=== PATIENT | female | born 1950 | race Caucasian/White ===

== ENCOUNTER 2020-11-08 07:23 | Outpatient (REF) | payer MEDICARE, SELFPAY ==
[2020-11-08 08:03] LABS: MANUAL DIFF FLAG NO
[2020-11-08 08:23] LABS: Basophils Percent Auto 0.6 % (0-2); Eosinophils Absolute Auto 0.1 X10*3/uL (0.0-0.4); Hemoglobin 14.2 g/dl (12.0-16.0); Lymphocytes Absolute Auto 1.5 X10*3/uL (1.2-4.9); Lymphocytes Percent Auto 41.9 % (20-40); Mean Corpuscular Hemoglobin 30.8 pg (27.0-33.0); Mean Corpuscular Volume 93.3 fL (80-98); Mean Platelet Volume 11.4 fL (9.4-12.3); Monocytes Absolute Auto 0.4 X10*3/uL (0.1-1.2); Monocytes Percent Auto 11.6 % (2-11); Neutrophils Absolute Auto 1.5 X10*3/uL (2.0-8.3); Neutrophils Percent Auto 43.9 % (45-73); Platelet Count 198 X10*3/uL (160-400); Red Blood Count 4.61 X10*6/uL (4.20-5.50); Red Cell Distribution Width 13.4 % (11.0-16.0); White Blood Count 3.5 X10*3/uL (4.8-10.8)
[2020-11-08 08:39] LABS: Alanine Aminotransferase 25 U/L (0-31); Albumin Level 4.1 g/dL (3.5-5.0); Alkaline Phosphatase 93 U/L (39-117); Anion Gap 11 (12-20); Aspartate Amino Transferase 28 U/L (5-31); Bilirubin Total 0.8 mg/dL (0.0-1.0); Blood Urea Nitrogen 16 mg/dL (9-16); Calcium 9.9 mg/dL (8.4-10.2); Carbon Dioxide 29 mmol/L (22-29); Chloride 104 mmol/L (96-108); Cholesterol 231 mg/dL; Estimated Glomerular Filt Rate > 60; Glucose Fasting 98 mg/dL (60-99); HDL Cholesterol 85 mg/dL; LDL Cholesterol Calculated 133 mg/dl; Potassium 4.5 mmol/L (3.3-5.1); Sodium 139 mmol/L (135-145); Triglycerides 68 mg/dL
[2020-11-08 08:55] LABS: Free T4 (Free Thyroxine) 0.89 ng/dL (0.71-1.85); Thyroid Stimulating Hormone 2.35 uIU/mL (0.32-4.0)
[2020-11-08 10:47] LABS: Estimated Average Glucose 100 mg/dL; Hemoglobin A1C 120.5009 umol/L; Hemoglobin A1c % 5.1 %
== END 2020-11-08 07:24 | disposition home or self-care (01) ==
LOC: HO.LAB 07:23
PROVIDERS: PCP Internal Medicine; Visit Provider Internal Medicine
DX: R00.2 Palpitations (principal); E78.00 Pure hypercholesterolemia, unspecified; E55.9 Vitamin D deficiency, unspecified; R21 Rash and other nonspecific skin eruption; R53.83 Other fatigue
CPT/HCPCS: 36415; 80053; 80061; 82306; 83036; 84439; 84443; 85025

== ENCOUNTER 2020-12-26 08:25 | Outpatient (REF) | payer MEDICARE, SELFPAY ==
--- NOTE | ~2020-12-26 | MM_ITS ---
EXAMINATION: MM SCREENING DIGITAL BREAST TOMOSYNTHESIS, BILATERAL CLINICAL INFORMATION: Screening. Asymptomatic. The lifetime risk of breast cancer based on the Tyrer-Cuzick Model is 8.8%. COMPARISON: Mammography: March 01, 2019 and studies dating back to August 13, 2011 TECHNIQUE: Digital breast tomosynthesis is performed in both the craniocaudal and mediolateral oblique views along with computer-aided detection (CAD). Synthesized 2D images are generated from the tomosynthesis. FINDINGS: There are scattered areas of fibroglandular density (ACR BI-RADS breast composition Category b). There are no significant masses, abnormal calcifications, or other abnormalities. MM/MM tomosynthesis screening BI IMPRESSION: There are no significant changes from prior study. ASSESSMENT: BI-RADS 1: Negative RECOMMENDATION: Routine annual mammography screening. This patient's information was entered into a reminder system with a target due date for their next mammogram.
--- NOTE | ~2020-12-26 | MM_ITS ---
EXAMINATION: BONE DENSITOMETRY CLINICAL INDICATION: Menopause. COMPARISON: Previous BD dated 08/16/2012 and baseline BD dated 06/01/2008. TECHNIQUE: Using a [employer] DXA System (software version: 13.1) manufactured by [employer], dual-energy x-ray absorptiometry was performed of the lumbar spine and left hip. The images are of good technical quality. Summary results are attached. FINDINGS: AP SPINE L1-L4: Current: BMD 1.229 g/cm2, Z-score 2.1, T-score 0.4, normal, 5.8% decrease from previous, 8.7% decrease from baseline (<5% change is not significant). Prior: BMD 1.304 g/cm2. Baseline: BMD 1.346 g/cm2. LEFT FEMUR, NECK: Current: BMD 1.096 g/cm2, Z-score 2.1, T-score 0.4, normal. Prior: BMD 1.198 g/cm2. Baseline: BMD 1.236 g/cm2. LEFT FEMUR, TOTAL: Current: BMD 1.085 g/cm2, Z-score 2.1, T-score 0.6, normal, 5.7% decrease from previous, 11.3% decrease from baseline (<5% change is not significant). Prior: BMD 1.151 g/cm2. Baseline: BMD 1.223 g/cm2. IDENTIFIED RISK FACTORS: Menopause. HISTORY OF FRACTURE: None listed. MEDICATIONS: Calcium, vitamin D. MM/XR DEXA axial skeleton IMPRESSION: 1. DIAGNOSIS: Normal bone density based on the lowest T-score value of 0.4 in the lumbar spine and femur neck applying World Health Organization criteria. 2. 10-YEAR FRACTURE RISK PREDICTION, FRAX: According to the guidelines, FRAX calculation should only be performed on patients in the osteopenia bone density category. Therefore, FRAX was not performed on this patient. 3. Treatment Recommendations: NOF guidelines recommend consideration for treatment in postmenopausal women and men age 50 and older presenting with the following: -A hip or vertebral (clinical or morphometric) fracture. -T-score less than or equal to -2.5 at the femoral neck or spine after appropriate evaluation to exclude secondary causes. -Low bone mass at the hip or spine and a 10-year fracture probability by FRAX of greater than or equal to 3% for hip fracture or greater than or equal to 20% for major osteoporotic fracture based on the [place] adapted WHO algorithm. 4. Other Recommendations: All treatment decisions require clinical judgment and consideration of individual patient factors, including patient preferences, comorbidities, previous drug use, risk factors not captured in the FRAX model (e.g. frailty, falls, vitamin D deficiency, increased bone turnover, interval significant decline in bone density) and possible under or overestimation of fracture risk by FRAX. FUTURE SCAN RECOMMENDATION: People with diagnosed cases of osteoporosis or at high risk for fracture should have regular bone mineral density tests. For patients eligible for Medicare, routine testing is allowed once every 2 years. The testing frequency can be increased to one year for patients who have rapidly progressing disease, those who are receiving or discontinuing medical therapy to restore bone mass, or have additional risk factors.
== END 2020-12-26 08:26 | disposition home or self-care (01) ==
LOC: HO.MAMMO 08:25
PROVIDERS: Visit Provider Internal Medicine
DX: Z13.820 Encounter for screening for osteoporosis (principal); Z78.0 Asymptomatic menopausal state; Z12.31 Encounter for screening mammogram for malignant neoplasm of breast
CPT/HCPCS: 77063; 77067; 77080

== ENCOUNTER 2022-01-08 07:11 | Outpatient (REF) | payer MEDICARE, SELFPAY ==
[2022-01-08 07:29] LABS: MANUAL DIFF FLAG NO
[2022-01-08 07:52] LABS: Basophils Percent Auto 0.6 % (0-2); Eosinophils Absolute Auto 0.1 X10*3/uL (0.0-0.4); Eosinophils Percent Auto 2.2 % (0-4); Hematocrit 42.2 % (37.0-47.0); Hemoglobin 14.3 g/dl (12.0-16.0); Imm Gran Abs Auto 0.01 X10*3/uL (0.00-0.03); Imm Gran Pct Auto 0.3 % (0.0-0.4); Lymphocytes Absolute Auto 1.4 X10*3/uL (1.2-4.9); Lymphocytes Percent Auto 38.9 % (20-40); Mean Corpuscular HGB Conc 33.9 g/dl (31.0-35.0); Mean Corpuscular Hemoglobin 31.4 pg (27.0-33.0); Mean Corpuscular Volume 92.5 fL (80.0-98.0); Mean Platelet Volume 10.9 fL (9.4-12.3); Monocytes Absolute Auto 0.4 X10*3/uL (0.1-1.2); Monocytes Percent Auto 11.4 % (2-11); Neutrophils Absolute Auto 1.7 x10*3/uL (2.0-8.3); Neutrophils Percent Auto 46.6 % (45-73); Platelet Count 206 X10*3/uL (160-400); Red Blood Count 4.56 X10*6/uL (4.20-5.50); Red Cell Distribution Width 13.8 % (11.0-16.0); White Blood Count 3.6 X10*3/uL (4.8-10.8)
[2022-01-08 08:34] LABS: Alanine Aminotransferase 43 U/L (0-31); Albumin Level 4.2 g/dL (3.5-5.0); Alkaline Phosphatase 105 U/L (39-117); Anion Gap 11 (12-20); Aspartate Amino Transferase 33 U/L (5-31); Bilirubin Total 0.8 mg/dL (0.0-1.0); Blood Urea Nitrogen 14 mg/dL (9-16); Calcium 9.6 mg/dL (8.4-10.2); Carbon Dioxide 29 mmol/L (22-29); Chloride 103 mmol/L (96-108); Cholesterol 238 mg/dL; Estimated Glomerular Filt Rate > 60; Glucose Fasting 94 mg/dL (60-99); HDL Cholesterol 85 mg/dL; LDL Cholesterol Calculated 138 mg/dl; Potassium 4.5 mmol/L (3.3-5.1); Sodium 138 mmol/L (135-145); Total Protein 6.9 g/dL (6.5-8.0); Triglycerides 79 mg/dL
[2022-01-08 08:58] LABS: Insulin 7 uU/mL (2-29)
[2022-01-08 09:10] LABS: Vitamin B12 1399 pg/mL (200-900)
== END 2022-01-08 07:12 | disposition home or self-care (01) ==
LOC: HO.LAB 07:11
PROVIDERS: PCP Internal Medicine; Visit Provider Internal Medicine
DX: Z00.00 Encounter for general adult medical examination without abnormal findings (principal); E78.00 Pure hypercholesterolemia, unspecified; R53.83 Other fatigue; R00.2 Palpitations
CPT/HCPCS: 36415; 80053; 80061; 82607; 83525; 85025

== ENCOUNTER 2022-01-20 07:05 | Outpatient (REF) | payer MEDICARE, SELFPAY ==
[2022-01-20 08:24] LABS: Cholesterol 224 mg/dL; HDL Cholesterol 81 mg/dL; LDL Cholesterol Calculated 129 mg/dl; Triglycerides 73 mg/dL
== END 2022-01-20 07:06 | disposition home or self-care (01) ==
LOC: HO.LAB 07:05
PROVIDERS: PCP Internal Medicine; Visit Provider Internal Medicine
DX: E78.00 Pure hypercholesterolemia, unspecified (principal)
CPT/HCPCS: 36415; 80061

== ENCOUNTER 2022-04-24 06:45 | Outpatient (REF) | payer MEDICARE, SELFPAY ==
[2022-04-24 07:52] LABS: Cholesterol 191 mg/dL; HDL Cholesterol 70 mg/dL; LDL Cholesterol Calculated 105 mg/dl; Triglycerides 81 mg/dL
== END 2022-04-24 06:46 | disposition home or self-care (01) ==
LOC: HO.LAB 06:45
PROVIDERS: PCP Internal Medicine; Visit Provider Internal Medicine
DX: E78.00 Pure hypercholesterolemia, unspecified (principal)
CPT/HCPCS: 36415; 80061

== ENCOUNTER 2023-01-08 06:27 | Outpatient (REF) | payer MEDICARE, SELFPAY ==
[2023-01-08 06:36] LABS: MANUAL DIFF FLAG NO
[2023-01-08 07:29] LABS: Basophils Percent Auto 0.7 % (0-2); Eosinophils Absolute Auto 0.1 X10*3/uL (0.0-0.4); Eosinophils Percent Auto 2.9 % (0-4); Hematocrit 42.8 % (37.0-47.0); Hemoglobin 14.3 g/dl (12.0-16.0); Imm Gran Abs Auto 0.01 X10*3/uL (0.00-0.03); Imm Gran Pct Auto 0.2 % (0.0-0.4); Lymphocytes Absolute Auto 1.9 X10*3/uL (1.2-4.9); Lymphocytes Percent Auto 46.5 % (20-40); Mean Corpuscular HGB Conc 33.4 g/dl (31.0-35.0); Mean Corpuscular Hemoglobin 31.5 pg (27.0-33.0); Mean Corpuscular Volume 94.3 fL (80.0-98.0); Mean Platelet Volume 11.3 fL (9.4-12.3); Monocytes Absolute Auto 0.6 X10*3/uL (0.1-1.2); Monocytes Percent Auto 13.3 % (2-11); Neutrophils Absolute Auto 1.5 x10*3/uL (2.0-8.3); Neutrophils Percent Auto 36.4 % (45-73); Platelet Count 193 X10*3/uL (160-400); Red Blood Count 4.54 X10*6/uL (4.20-5.50); Red Cell Distribution Width 13.5 % (11.0-16.0); White Blood Count 4.2 X10*3/uL (4.8-10.8)
[2023-01-08 08:02] LABS: Alanine Aminotransferase 24 U/L (0-31); Alkaline Phosphatase 85 U/L (39-117); Anion Gap 9 (12-20); Aspartate Amino Transferase 27 U/L (5-31); Bilirubin Total 0.8 mg/dL (0.0-1.0); Blood Urea Nitrogen 14 mg/dL (9-16); Calcium 10.1 mg/dL (8.4-10.2); Carbon Dioxide 29 mmol/L (22-29); Chloride 105 mmol/L (96-108); Cholesterol 238 mg/dL; Estimated Glomerular Filt Rate > 60; Glucose Fasting 95 mg/dL (60-99); HDL Cholesterol 90 mg/dL; LDL Cholesterol Calculated 135 mg/dl; Potassium 4.2 mmol/L (3.3-5.1); Sodium 139 mmol/L (135-145); Total Protein 7.1 g/dL (6.5-8.0); Triglycerides 67 mg/dL
== END 2023-01-08 06:28 | disposition home or self-care (01) ==
LOC: HO.LAB 06:27
PROVIDERS: PCP Internal Medicine; Visit Provider Internal Medicine
DX: M16.0 Bilateral primary osteoarthritis of hip (principal); E78.00 Pure hypercholesterolemia, unspecified
CPT/HCPCS: 36415; 80053; 80061; 85025

== ENCOUNTER → 2023-01-12 07:54 | Outpatient (REF) | payer MEDICARE, SELFPAY ==
--- NOTE | 2023-01-12 07:57 | CA_ITS ---
Acquisition Time: 2023-01-12 07:57:48 Total Exercise Time: 00:08:01 Test Indications: SOB Medications: SEE H Protocol: NATASHA Max HR: 122 BPM 82% of Pred: 148 BPM Max BP: 158/078 mmHG Max Work Load: 10.1 METS PT EXERCISED ON STD NATASHA PROTOCOL FOR 8 MIN INTO STAGE 3. MAX HR 122-82%MAX. TEST STOPPED DUE TO SOB. NO C/O CP. 1-2MM ST DEP IN INF/LAT LEADS. NML BP RESPONSE.CLINICALLY AND ELEC POSITIVE. WILL ARRANGE FOR FURTHER CARDIOLOGY TESTING. Referred By: Jass Reza Overread By: PANFILO REZA MD
== END ==
LOC: HO.CARD 07:54
PROVIDERS: PCP Internal Medicine; Visit Provider Internal Medicine
DX: R06.02 Shortness of breath (principal); Z82.49 Family history of ischemic heart disease and other diseases of the circulatory system
CPT/HCPCS: 93017

== ENCOUNTER → 2023-01-13 14:22 | Outpatient (BNVA) | payer MEDICARE, SELFPAY | PROVIDERS: PCP Internal Medicine; Visit Provider Internal Medicine Cardiovascular Disease | DX: R06.09 Other forms of dyspnea (principal) | CPT/HCPCS: 93005; 99202 ==

== ENCOUNTER → 2023-02-10 07:50 | Outpatient (REF) | payer MEDICARE, SELFPAY ==
--- NOTE | 2023-02-10 07:52 | CA_ITS ---
Transthoracic Echocardiogram Patient (Last, First, Middle): Kim Miles, Gender: Female Date of : 1950 Age: 72 Procedure Date: 02/10/2023 Procedure Type: Transthoracic Echocardiogram Location: OP Height: 170.18 cm Weight: 64.41 kg BSA: 1.75 m2 Heart Rate: 58 bpm BP: 122 / 74 mmHg Property Utilization Manager: FELIX Referring MD: Mo Cedillo MD Kiln Burner: Mo Cedillo MD Symptoms: R06.09 - Other forms of dyspnea Study Quality: Adequate ECG Rhythm: Bradycardia Conclusions: - Normal study Findings Left Ventricle Normal left ventricular cavity size. There is normal left ventricular wall thickness. The left ventricular systolic function is hyperdynamic. The visually estimated ejection fraction is >70%. Diastolic function is normal for age. Right Ventricle Normal right ventricular cavity size and systolic function. Atria Both atria are normal in size. There is no evidence of interatrial shunt. Aortic Valve Normal aortic valve structure and function. There is no aortic valve stenosis. There is no aortic valve regurgitation. Mitral Valve Normal mitral valve structure and function. There is trace mitral valve regurgitation. There is no mitral valve stenosis. Pulmonic Valve The pulmonic valve is likely normal. There is trace pulmonic valve regurgitation. Tricuspid Valve Normal tricuspid valve structure. Normal right atrial pressure. There is no evidence of pulmonary hypertension. Great Vessels The pulmonary artery was not well visualized. Venous The inferior vena cava is normal in size and collapses greater than 50% with inspiration. Pericardium/Pleural There is no evidence of pericardial effusion. Prior Study Comparison No prior study available for comparison. Measurements 2D Linear Measurements IVSd: 0.90 0.6-0.9/0.6-1.0 cm LVIDd: 3.78 3.9-5.3/4.2-5.9 cm LVIDd Index: 2.16 2.4-3.2/2.2-3.1 cm/m2 LVIDs: 2.29 2.0-3.6 cm LVPWd: 0.77 0.7-1.1 cm LA Diam: 2.90 2.7-3.8/3.0-4.0 cm LAIDs Index: 1.66 1.5-2.3 cm/m2 LV Mass: 112.46 67-162/88-224 g LV Mass Index: 64.26 43-95/49-115 g/m2 LVOT Diam: 1.90 3.0+(-)1.3 cm 2D Systolic Function EF 4C: 75.70 >55% EF 2C: 77.60 >55% EF BiP: 76.10 >55% Mitral Valve MV Pk E: 1.09 MV PK A: 0.49 MV Decel Time: 183.00 E/A: 2.20 E'Lateral: 8.49 E'Medial: 7.94 E/E' Med: 13.70 E/E' Lat: 12.80 PHT: 54.00 MVA PHT: 4.07 Decel [place]: 5.97 Aortic Valve AoV Pk Jeffrey: 1.42 AoV Pk Grad: 8.00 JAKE: 2.64 LVOT LVOT Pk Jeffrey: 1.32 LVOT Mn Jeffrey: 0.91 LVOT VTI: 0.31 LVOT Pk Grad: 7.00 LVOT Mn Grad: 4.00 LVOT Diam: 1.90 LVOT Area: 2.84 Diastolic Function MV Pk E: 1.09 MV Pk A: 0.49 E/A: 2.20 E'Medial: 7.94 E/E' Med: 13.70 E' Laterial: 8.49 E/E' Lat: 12.80 Right Ventricle TAPSE (mm): 29.70 TVS' Jeffrey: 13.70 Tricuspid Valve TR Pk Jeffrey: 2.49 TR Pk Grad: 25.00 RA Press: 3.00 RVSP: 28.00 Great Vessels Aorta Sinus of Valsalva: 3.20 2.0-3.5 cm Ao Asc: 3.60 2.1-3.4 cm Pulmonary Veins Pulm Vein S/D 1.00 Pulmonary Valve PV Pk Jeffrey: 1.04 Peak PV Grad: 4.00 Updated in Other Vendor System with Status of Final Mo Cedillo MD electronically signed on 02/11/2023 11:52:59 AM with status of Final
== END ==
LOC: HO.CARD 07:50
PROVIDERS: PCP Internal Medicine; Visit Provider Internal Medicine Cardiovascular Disease
DX: R06.09 Other forms of dyspnea (principal)
CPT/HCPCS: 93306

== ENCOUNTER → 2023-02-10 07:52 | Outpatient (BNV) | payer MEDICARE, SELFPAY | PROVIDERS: PCP Internal Medicine; Visit Provider Internal Medicine Cardiovascular Disease | DX: R94.39 Abnormal result of other cardiovascular function study (principal) | CPT/HCPCS: 93306 ==

== ENCOUNTER 2023-02-11 09:06 | Outpatient (REF) | payer MEDICARE, SELFPAY ==
[2023-02-11 09:58] LABS: Anion Gap 13 (12-20); Blood Urea Nitrogen 14 mg/dL (9-16); Calcium 9.3 mg/dL (8.4-10.2); Carbon Dioxide 23 mmol/L (22-29); Chloride 103 mmol/L (96-108); Estimated Glomerular Filt Rate > 60; Glucose Random 87 mg/dL (60-115); Potassium 4.3 mmol/L (3.3-5.1); Sodium 135 mmol/L (135-145)
== END 2023-02-11 09:07 | disposition home or self-care (01) ==
LOC: HO.LAB 09:06
PROVIDERS: PCP Internal Medicine; Visit Provider Internal Medicine Cardiovascular Disease
DX: R06.09 Other forms of dyspnea (principal)
CPT/HCPCS: 36415; 80048

== ENCOUNTER 2023-03-08 09:22 | Outpatient (AMB) | payer MEDICARE, SELFPAY ==
[2023-03-08 09:25] VITALS: BP 120/72; PULSE 63
--- NOTE | 2023-03-08 09:25 | A.OFFVIS_ITS ---
Intake Vital Signs 03/08/23 09:25 Height 57 ft Weight 143 lb 4.807 oz BMI 0.2 BP 120/72 Blood Pressure Location Lt brachial Position Sitting Pulse 63 Pulse Source Pulse Oximeter Intake Visit Reasons: folow up after testing Intake Note: f/up after testing pt still felling s/b while and during physical activities Overlock Hemmer Required: No Allergies erythromycin base [Erythromycin Base] Allergy (Unknown, Verified 03/08/23 09:30) RASH CITRACE SPRAY Allergy (Unknown, Uncoded 04/04/20 16:26) WHEEZING Medication List - Last Reconciled 03/08/23 by Mindy Carlton, MARLYN-C aspirin (Adult Aspirin Regimen) 81 mg PO DAILY multivitamin (Daily Multi-Vitamin tablet) 1 tab PO DAILY HPI folow up after testing HPI Details Kim is a 72-year-old female with past medical history of remote history of secondhand smoke, family history heart disease who is being evaluated for shortness of breath with activity and recently underwent an echocardiogram and CTA of the coronary arteries. Today she reports that she continues to have a symptom of shortness of breath with activity. She denies any shortness of breath at rest, PND, orthopnea. She has done the same type of physical activity for years including walking her neighborhood and she notices her tolerance is decreasing. She develops the shortness of breath with walking and this has slowed her down. She tolerates normal ADLs without significant difficulty. She watches her grandchildren daily. She will get twinges in her chest and has for many years. More recently she feels the twinges have increased. No palpitations, dizziness, presyncope, syncope, falls. She describes getting mild lower leg edema at times. 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 [facility] Surgical History Hx of cataract Hx of tonsillitis Family History Father CAD (coronary artery disease) Mother CAD (coronary artery disease) Social History Alcohol intake: current Alcohol intake frequency: holidays/special occasions only Patient Tobacco Use Status: Never used Tobacco Review of Systems Const All systems reviewed & are unremarkable except as noted in HPI and below ENT Reports dizziness Card Denies chest pain, Denies chest pain at rest, Denies chest pain with activity, Denies rapid heart rate, Denies pedal edema, Denies edema, Denies leg edema, Denies lightheadedness, Denies palpitations, Denies dyspnea, Reports dyspnea on exertion and Denies orthopnea Resp Denies cough, Denies dyspnea and Reports dyspnea on exertion GI Denies hematochezia and Denies change in stool character Musc Denies abnormal gait, Reports limited range of motion, Reports muscle cramps, Denies muscle weakness, Denies numbness, Denies radiating pain into limb, Denies stiffness and Denies tingling Neuro Denies abnormal gait, Reports dizziness, Denies numbness and Denies tingling Endo Denies palpitations Physical Exam Vital Signs: Last Vital Signs Pulse 63 03/08/23 09:25 BP 120/72 03/08/23 09:25 BMI result Body Mass Index 0.2 Const General: cooperative, healthy appearing, comfortable and no acute distress Orientation/consciousness: patient oriented x3 Neck Neck: Yes normal visual inspection and Yes no JVD Resp Effort & Inspection: normal respiratory effort Auscultation: clear to auscultation bilaterally, no crackles, no rales, no rhonchi and no wheezes Cardio Jugular venous distension: no JVD Rate: regular rate Rhythm: regular rhythm Heart sounds: S1 normal heart sound present, S2 normal heart sound present, no gallops, no murmurs and no rubs Neuro General: patient oriented x3 Extrem General: Yes normal to inspection Psych Appearance: grossly normal Mental Status: mental status grossly normal Speech and movement: Normal speech and movement present Assessment & Plan Assessment & Plan (1) Exertional dyspnea: Code(s): R06.09 - Other forms of dyspnea Plan: Reports of increasing shortness of breath with physical activity such as walking. She has maintained her same physical activity over many years but notices this symptom is increasing with time. No chest discomfort at rest or with activity. No PND, orthopnea or edema. No pulmonary history with the exception of secondhand smoke exposure throughout her childhood to age 18. No cardiac history but does have family history of CAD including parents. EKG done last visit showing sinus Servando with incomplete right bundle branch block, rate 53. Exercise stress test done 01/12/2023 with good exercise capacity, 10 Mets workload, shortness of breath present, EKG changes suggesting ischemia. An echocardiogram was done on 02/10/2023 showing normal study, EF greater than 70%. A CTA of the coronary arteries was done on 02/17/2023 showing no CAD. Today she reports ongoing symptoms of shortness of breath with activity. Reviewed all test results with her. Offered reassurance that no cardiac findings for her symptom have been identified. Will order a pulmonary function test for further evaluation. Inform she may stop daily aspirin as it is not needed for cardiac reasons. Ongoing cardiac risk factor modification including good cholesterol control, weight control, ongoing physical activity. She expresses much concern about her symptom of shortness of breath. Cardiology follow-up 3 months to go over pulmonary function test and re-evaluate symptoms. (2) Hyperlipidemia: Code(s): E78.5 - Hyperlipidemia, unspecified Plan: Labs done on 01/08/2023 shows total cholesterol 238, LDL 135, HDL 90. She has family history of coronary artery disease. CTA results as above. She is requesting low-dose cholesterol agent to help lower her total cholesterol. She states the benefit was discussed with her last visit. Will start atorvastatin 10 mg daily. Fasting lipid profile in 2-3 months. Orders: Orders PFT pulmonary function test Today R06.09 - Other forms of dyspnea Lipid Panel 2 Months E78.5 - Hyperlipidemia, unspecified Medications: New atorvastatin 10 mg PO BEDTIME 30 tabs 3RF Coding Level of Care Code Est Pt Level 3 (44486) Diagnoses Exertional dyspnea R06.09 Hyperlipidemia E78.5 Time Spent (min) 24 Comment Chart review, documentation, interview, assessment
== END 2023-03-08 10:14 | disposition home or self-care (01) ==
PROVIDERS: PCP Internal Medicine; Referring Provider Internal Medicine; Visit Provider Nurse Practitioner Family
DX: R06.09 Other forms of dyspnea (principal); E78.5 Hyperlipidemia, unspecified
CPT/HCPCS: 99213

== ENCOUNTER → 2023-03-08 09:22 | Outpatient (BNVA) | payer MEDICARE, SELFPAY | PROVIDERS: PCP Internal Medicine; Referring Provider Internal Medicine; Visit Provider Nurse Practitioner Family | DX: R06.09 Other forms of dyspnea (principal); E78.5 Hyperlipidemia, unspecified; Z82.49 Family history of ischemic heart disease and other diseases of the circulatory system | CPT/HCPCS: 99212 ==

== ENCOUNTER 2023-03-16 08:14 | Outpatient (REF) | payer MEDICARE, SELFPAY ==
--- NOTE | 2023-03-16 09:12 | PFT_ITS ---
FLOWS: 1. FEV1 101% of predicted at 2.52 L. 2. FVC 91% of predicted at 3.00 L. 3. FEV1 to FVC ratio of 0.84. 4. No bronchodilator response. LUNG VOLUMES: 1. Total lung capacity 90% of predicted at 4.95 L. 2. Residual volume 82% of predicted at 1.97 L. 3. Slow vital capacity 96% of predicted at 2.99 L. 4. Expiratory reserve volume 62% of predicted at 0.48 L. 5. Diffusion capacity is mildly decreased. IMPRESSION: No obstructive or restrictive ventilatory defect. No bronchodilator response. Decreased diffusion capacity suggests emphysema. Barber Morton MD AP/MODL / [id number]
== END 2023-03-16 08:15 | disposition home or self-care (01) ==
LOC: HO.RESP 08:14
PROVIDERS: PCP Internal Medicine; Visit Provider Nurse Practitioner Family
DX: R06.89 Other abnormalities of breathing (principal)
CPT/HCPCS: 94010; 94727; 94729

== ENCOUNTER → 2023-03-16 09:12 | Outpatient (BNV) | payer MEDICARE, SELFPAY | PROVIDERS: PCP Internal Medicine; Visit Provider Internal Medicine Pulmonary Disease | DX: R06.09 Other forms of dyspnea (principal) | CPT/HCPCS: 94060 ==

== ENCOUNTER 2023-05-26 10:19 | Outpatient (AMB) | payer MEDICARE, SELFPAY ==
--- NOTE | 2023-05-26 10:24 | A.OFFVIS_ITS ---
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 The patient is a 73 year woman her is a healthy who apparently has been complaining of worsening dyspnea on exertion for the last few years. Is concerned that is progressively getting worse and she would like to avoid that if possible. The patient did have a workup including a PFT which was completely unremarkable except for slight decrease in the diffusing capacity. The patient also had a cardiac workup which included an echocardiogram demonstrating a dynamic left ventricle in addition to that underwent a stress test that was abnormal as she developed worsening shortness of breath and ST depressions in the EKG. The patient there fore underwent a CT of the coronary arteries which apparently was unremarkable. Therefore she was referred to Pulmonary. The patient denies any significant coughing. We did go for brief 6 minutes walk test actually going up a flight of stairs in the patient did become uncomfortable with dyspnea with dyspnea score of 7/10. Her oxygen was 98% and heart rate increased to about 115. Once the heart rate improved to her baseline of 70s her symptoms improved as well. Therefore, I do believe that is still a cardiovascular component and thereforewill request blood work including a D-dimer to assess for pulmonary emboli. In addition to that she will benefit from a cardiopulmonary exercise tolerance test to assess further the reasons for her dyspnea. [facility] Medical History (Updated 05/27/23 @ 09:22 by Jose Jacobs MD) Tachycardia Surgical History Hx of tonsillitis Hx of cataract Family History Father CAD (coronary artery disease) Mother CAD (coronary artery disease) Social History Alcohol intake: current Alcohol intake frequency: holidays/special occasions only Patient Tobacco Use Status: Never used Tobacco Review of Systems Const Denies fever(s) Eyes Denies change in vision ENT Denies throat swelling Card Denies chest pain, Reports palpitations and Reports dyspnea on exertion Resp Denies cough, Reports dyspnea on exertion and Denies wheezing GI Denies abdominal pain Musc Reports no additional complaints Skin/Breast Denies rash Neuro Reports no additional complaints Endo Reports palpitations Aller/Immun Denies throat swelling and Denies wheezing Physical Exam Vital Signs: Last Vital Signs Pulse 56 05/26/23 10:25 BP 128/70 05/26/23 10:25 Pulse Ox 98 05/26/23 10:25 Oxygen Delivery Method Room Air 05/26/23 10:25 BMI result Body Mass Index 22.2 Const General: comfortable HEENT Head: Yes normocephalic Neck Neck: Yes supple Chest Chest palpation & inspection: normal inspection of the chest Resp Effort & Inspection: normal respiratory effort and tachypneic Auscultation: clear to auscultation bilaterally Cardio Rate: tachycardic Rhythm: regular rhythm Heart sounds: S1 normal heart sound present and S2 normal heart sound present GI Palpation (GI): Soft to palpation Skin General skin exam: no rashes or lesions noted Extrem General: Yes no clubbing, cyanosis or edema Assessment & Plan Assessment & Plan (1) Abnormal pulmonary function test: Comment: isolated diffusion impairment, mild Code(s): R94.2 - Abnormal results of pulmonary function studies (2) Exertional dyspnea: Comment: multifactorial. Although, I suspect a cardiovascular or pulmonary vascular component Code(s): R06.09 - Other forms of dyspnea (3) Tachycardia: Code(s): R00.0 - Tachycardia, unspecified Plan Bloodwork No need for inhaler therapy CPET at [facility] [place] Orders: Orders Basic Metabolic Panel Today R06.09 - Other forms of dyspnea D Dimer High Sensitivity Today R06.09 - Other forms of dyspnea Troponin-I High Sensitivity Today R06.09 - Other forms of dyspnea Complete Blood Count Auto Diff Today R06.09 - Other forms of dyspnea Erythrocyte Sedimentation Rate Today R06.09 - Other forms of dyspnea B Type Natriuretic Peptide Today R06.09 - Other forms of dyspnea Coding Level of Care Code New Pt Level 4 (58594) Diagnoses Abnormal pulmonary function test R94.2 Exertional dyspnea R06.09 Tachycardia R00.0 Time Spent (min) 40
[2023-05-26 10:25] VITALS: BP 128/70; PULSE 56; O2SAT 98; BMI 22.2
== END 2023-05-26 11:03 | disposition home or self-care (01) ==
PROVIDERS: PCP Internal Medicine; Referring Provider Nurse Practitioner Family; Visit Provider Hospitalist
DX: R94.2 Abnormal results of pulmonary function studies (principal); R06.09 Other forms of dyspnea; R00.0 Tachycardia, unspecified
CPT/HCPCS: 99204

== ENCOUNTER → 2023-05-26 10:19 | Outpatient (BNVA) | payer MEDICARE, SELFPAY | PROVIDERS: PCP Internal Medicine; Referring Provider Nurse Practitioner Family; Visit Provider Hospitalist | DX: R94.2 Abnormal results of pulmonary function studies (principal); R06.09 Other forms of dyspnea; R00.0 Tachycardia, unspecified | CPT/HCPCS: 99202 ==

== ENCOUNTER 2023-05-27 06:09 | Outpatient (REF) | payer MEDICARE, SELFPAY ==
[2023-05-27 06:23] LABS: MANUAL DIFF FLAG NO
[2023-05-27 07:20] LABS: Basophils Percent Auto 0.6 % (0-2); Eosinophils Absolute Auto 0.1 X10*3/uL (0.0-0.4); Hematocrit 44.3 % (37.0-47.0); Hemoglobin 14.8 g/dl (12.0-16.0); Imm Gran Abs Auto 0.01 X10*3/uL (0.00-0.03); Imm Gran Pct Auto 0.3 % (0.0-0.4); Lymphocytes Absolute Auto 1.5 X10*3/uL (1.2-4.9); Lymphocytes Percent Auto 43.5 % (20-40); Mean Corpuscular HGB Conc 33.4 g/dl (31.0-35.0); Mean Corpuscular Hemoglobin 30.8 pg (27.0-33.0); Mean Corpuscular Volume 92.3 fL (80.0-98.0); Mean Platelet Volume 10.7 fL (9.4-12.3); Monocytes Absolute Auto 0.4 X10*3/uL (0.1-1.2); Monocytes Percent Auto 11.3 % (2-11); Neutrophils Absolute Auto 1.4 x10*3/uL (2.0-8.3); Neutrophils Percent Auto 41.3 % (45-73); Platelet Count 208 X10*3/uL (160-400); Red Cell Distribution Width 13.2 % (11.0-16.0); White Blood Count 3.4 X10*3/uL (4.8-10.8)
[2023-05-27 07:27] LABS: D Dimer High Sensitivity < 150 NG/ML
[2023-05-27 07:40] LABS: Anion Gap 12 (12-20); Blood Urea Nitrogen 12 mg/dL (9-16); Calcium 9.8 mg/dL (8.4-10.2); Carbon Dioxide 27 mmol/L (22-29); Chloride 105 mmol/L (96-108); Cholesterol 192 mg/dL (<200); Estimated Glomerular Filt Rate > 60; Glucose Random 97 mg/dL (60-115); HDL Cholesterol 85 mg/dL (>40); LDL Cholesterol Calculated 93 mg/dL (<100); Potassium 3.9 mmol/L (3.3-5.1); Sodium 140 mmol/L (135-145); Triglycerides 70 mg/dL (<150)
[2023-05-27 07:46] LABS: B Type Natriuretic Peptide 52 pg/mL (<100)
[2023-05-27 07:49] LABS: Troponin-I High Sensitivity < 2.7 ng/L (<3.5-17.0)
[2023-05-27 07:57] LABS: Erythrocyte Sedimentation Rate 7 MM/HR (0-20)
== END 2023-05-27 06:10 | disposition home or self-care (01) ==
LOC: HO.LAB 06:09
PROVIDERS: Absent Provider Hospitalist; PCP Internal Medicine; Visit Provider Nurse Practitioner Family
DX: R06.09 Other forms of dyspnea (principal); E78.5 Hyperlipidemia, unspecified
CPT/HCPCS: 36415; 80048; 80061; 83880; 84484; 85025; 85379; 85652

== ENCOUNTER 2023-08-11 09:35 | Outpatient (AMB) | payer MEDICARE, SELFPAY ==
--- NOTE | 2023-08-11 09:37 | MHC.OFFVIS ---
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 Is concerned that is progressively getting worse and she would like to avoid that if possible. The patient did have a workup including a PFT which was completely unremarkable except for slight decrease in the diffusing capacity. The patient also had a cardiac workup which included an echocardiogram demonstrating a dynamic left ventricle in addition to that underwent a stress test that was abnormal as she developed worsening shortness of breath and ST depressions in the EKG. The patient therefore underwent a CT of the coronary arteries which apparently was unremarkable. Therefore she was referred to Pulmonary. The patient denies any significant coughing. We did go for brief 6 minutes walk test actually going up a flight of stairs in the patient did become uncomfortable with dyspnea with dyspnea score of 7/10. Her oxygen was 98% and heart rate increased to about 115. Once the heart rate improved to her baseline of 70s her symptoms improved as well. Therefore, I do believe that is still a cardiovascular component and thereforewill request blood work including a D-dimer to assess for pulmonary emboli. In addition to that she will benefit from a cardiopulmonary exercise tolerance test to assess further the reasons for her dyspnea. 08/11/2023 the patient is here for a pulmonary follow-up visit. Overall the patient has been doing well. She has noticed that her dyspnea symptoms did get worse after Thanksgiving she had a more sodium intake and she was feeling bloated and swollen. In addition to that she feels like her breathing is worse when she leans forward against something restricting her lung capacity as well. We did review her pulmonary function studies demonstrating a mild diffusion impairment. She also underwent a cardiopulmonary exercise tolerance test to better address her underlying dyspnea symptoms. She did have a lower than normal aerobic capacity in addition to that her breathing reserve was significantly decreased and her oxygen pulse was plateaued. Therefore, appears to be a component of a respiratory limitation as well as a potential component of pulmonary vascular disease. Therefore, we talked about the importance of pulmonary rehabilitation to improve her airway capacity. I do not believe inhalers will be helpful at this time. The patient may have a cardiac component as well but is reassuring that her cardiac workup was good. My recommendation for the patient's start pulmonary rehabilitation and we can repeat her PFTs in 8-12 months to see if there is any evidence of any changes. [facility] Medical History (Updated 08/11/23 @ 18:05 by Jose Jacobs MD) Tachycardia Surgical History Hx of tonsillitis Hx of cataract Family History Father CAD (coronary artery disease) Mother CAD (coronary artery disease) Social History Alcohol intake: current Alcohol intake frequency: holidays/special occasions only Patient Tobacco Use Status: Never used Tobacco Review of Systems Const Denies fever(s) Eyes Denies change in vision ENT Denies throat swelling Card Denies chest pain, Reports palpitations and Reports dyspnea on exertion Resp Denies cough, Reports dyspnea on exertion and Denies wheezing GI Denies abdominal pain Musc Reports no additional complaints Skin/Breast Denies rash Neuro Reports no additional complaints Endo Reports palpitations Aller/Immun Denies throat swelling and Denies wheezing Physical Exam Vital Signs: Last Vital Signs Pulse 63 08/11/23 09:39 Pulse Ox 100 08/11/23 09:39 Oxygen Delivery Method Room Air 08/11/23 09:39 BMI result Body Mass Index 22.1 Const General: comfortable HEENT Head: Yes normocephalic Neck Neck: Yes supple Chest Chest palpation & inspection: normal inspection of the chest Resp Effort & Inspection: normal respiratory effort Auscultation: clear to auscultation bilaterally Cardio Rate: tachycardic Rhythm: regular rhythm Heart sounds: S1 normal heart sound present and S2 normal heart sound present GI Palpation (GI): Soft to palpation Skin General skin exam: no rashes or lesions noted Extrem General: Yes no clubbing, cyanosis or edema Assessment & Plan Assessment & Plan (1) Abnormal pulmonary function test: Comment: isolated diffusion impairment, mild Code(s): R94.2 - Abnormal results of pulmonary function studies (2) Exertional dyspnea: Comment: multifactorial Code(s): R06.09 - Other forms of dyspnea (3) Tachycardia: Code(s): R00.0 - Tachycardia, unspecified Plan CPET demonstrates that the patient primarily has a low aerobic capacity primarily due to a respiratory limitation, but also appears to have a cardiovascular limititation. I suspect a component of pulmonary vascular disease. Clinically, the patient is feeling better at this time. REC: On line pulmonary rehab to improve aerobic capacity consider [place] as needed prior to exercise Should consider repeating PFTs in 8-12 months from now. The patient will call. Orders: Orders PFT pulmonary function test 10 Months R06.09 - Other forms of dyspnea Coding Level of Care Code Tele Est Pt Level 4 (90533) Diagnoses Abnormal pulmonary function test R94.2 Exertional dyspnea R06.09 Tachycardia R00.0 Time Spent (min) 18
[2023-08-11 09:39] VITALS: PULSE 63; O2SAT 100; BMI 22.1
== END 2023-08-11 10:23 | disposition home or self-care (01) ==
PROVIDERS: PCP Internal Medicine; Visit Provider Hospitalist
DX: R06.09 Other forms of dyspnea (principal); R00.0 Tachycardia, unspecified; R94.2 Abnormal results of pulmonary function studies
CPT/HCPCS: 99214

== ENCOUNTER → 2023-08-11 09:35 | Outpatient (BNVA) | payer MEDICARE, SELFPAY | PROVIDERS: PCP Internal Medicine; Visit Provider Hospitalist | DX: R06.09 Other forms of dyspnea (principal); R94.2 Abnormal results of pulmonary function studies; R00.0 Tachycardia, unspecified | CPT/HCPCS: 99212 ==

== ENCOUNTER 2023-11-08 10:15 | Day surgery (SDC) | payer MEDICARE, SELFPAY ==
--- NOTE | 2023-10-18 19:59 | HP_ITS ---
DATE OF SERVICE: 11/08/2023 HISTORY OF PRESENT ILLNESS: The patient is a 73-year-old female seen in the office today for preoperative evaluation prior to cataract surgery with Dr. Hawthorne scheduled for 11/08/2023. The patient feels well. She has been seen by Pulmonary. ALLERGIES: SHE LISTS AN ALLERGY TO ERYTHROMYCIN. MEDICATIONS: Atorvastatin 10 mg and aspirin 81 mg. PAST MEDICAL HISTORY: Significant for palpitations, fatigue, arthritis of the hips, hay fever, elevated cholesterol, borderline pulmonary hypertension. FAMILY HISTORY: Mother in her 70s. Father in his 70s. Two sisters, who have diabetes. SOCIAL HISTORY: She is , retired, has 2 children. 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 REVIEW OF SYSTEMS: No fevers, chills, or sweats. No weight change. No headaches or dizziness. No palpitations or chest pain. No peripheral edema. No current complaints of coughing, wheezing, or shortness of breath. No abdominal pain or heartburn. No dysuria. No complaints of arthritis. Sleep and appetite are normal. She does have seasonal allergies. No skin complaints. PHYSICAL EXAMINATION: GENERAL: She is awake and alert, in no distress. VITAL SIGNS: Temperature 98.2, pulse 60, respirations 12, blood pressure 108/62, oxygen saturation on room air is 99%. Weight is 140. Height is 5 feet 8 inches. HEENT: Clear. NECK: Supple. No nodes, bruits, or masses. HEART: Sounds S1 and S2. Regular rate. LUNGS: Clear. ABDOMEN: Soft and nontender with positive bowel sounds. EXTREMITIES: No clubbing, cyanosis, or edema. 1+ pulses. NEUROLOGICAL: Nonfocal. Cranial nerves II through XII are intact. ASSESSMENT AND PLAN: She is medically stable for cataract surgery. No contraindications. Low risk. I will be available if there are any medical issues. MD EDITA Gomez/MODL / [phone]
[2023-11-04 07:42] VITALS: BMI 22.1
[2023-11-08 13:17] VITALS: BP 123/63; PULSE 55; RESP 15; TEMP 36.3; O2SAT 98
[2023-11-08] MEDS: Tetracaine HCl/PF 0.5% Oph Sol 4 ML DROPS 1 DROP EYE-LEFT (13:29)
[2023-11-08] MEDS: Tropicamide 1 % Ophth Sol 3 ML BTL 1 DROP EYE-LEFT ×3 (13:32→13:42)
[2023-11-08] MEDS: Ketorolac Tromethamine 0.5% Op 5 ML DROPS 1 DROP EYE-LEFT ×3 (13:35→13:43)
[2023-11-08] MEDS: Phenylephrine HCL 2.5% Oph SoL 2 ML BOTTLE 1 DROP EYE-LEFT ×3 (13:36→13:44)
--- NOTE | 2023-11-08 13:51 | P.CONAN_ITS ---
HPI - Anesthesia Eval Consult details Narrative: 73 yo F presenting for Left Cataract Extraction IOL Insertion. Has dyspnea with exertion. Mild diffusion impairment with PFTs. 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 PMFSH Active Problems Active Problems: All Active Problems Abnormal pulmonary function test (Acute) Hyperlipidemia (Acute) Exertional dyspnea (Acute) Tachycardia (Acute) Past Medical History Medical History Pulmonary hypertension Elevated cholesterol Hayfever Arthritis Fatigue Palpitations Tachycardia Family History Family History Father CAD (coronary artery disease) Mother CAD (coronary artery disease) Family history of problems with anesthesia: No Surgical History Surgical History Hx of tonsillitis Hx of cataract History of Problems with Anesthesia: No Social History Social History Alcohol intake: current Alcohol intake frequency: holidays/special occasions only Patient Tobacco Use Status: Never used Tobacco Advance Directives: No Advance Directives Information Provided: Yes Advance Directives on File: No Meds Allergies Allergy/AdvReac Type Severity Reaction Status Date / Time erythromycin base Allergy Unknown RASH Verified 11/08/23 13:16 [Erythromycin Base] CITRACE SPRAY Allergy Unknown WHEEZING Uncoded 08/11/23 09:40 Active Medications: Current Medications Povidone Iodine (Povidone Iodine 5 % Ophth Soln 30 Ml Bottle) 1 appl EYE-LEFT PREOP PRN PRN Reason: Pre-Op Surgical Implant Prophy Home Medications ?Medication ?Instructions ?Recorded ?Confirmed ?Last Taken ?Type aspirin 81 mg tablet,delayed 81 mg PO DAILY 01/13/23 11/04/23 11/08/23 06:00 History release (Adult Aspirin Regimen) multivitamin (Daily Multi-Vitamin 1 tab PO DAILY 01/13/23 03/08/23 11/08/23 06:00 History tablet) Exam Exam Date and Time: November 08, 2023 1350 Height,Weight and Vital Signs: Height 5 ft 7 in Weight 63.957 kg Last Vital Signs Temp 97.3 F 11/08/23 13:17 Pulse 55 11/08/23 13:17 Resp 15 04/22/24 13:17 BP 123/63 11/08/23 13:17 Pulse Ox 98 11/08/23 13:17 O2 Del Method Room Air 11/08/23 13:17 Airway Mallampati Class: I TM Dist: >3cm Neck ROM: Full Loose/Missing/Broken Teeth: No (patient has permanent implants but denies any loose or broken teeth) Heart: S1S2 Lungs: CTAB Assessment and Plan Assessment Anesthesia Assessment: Anesthesia Plan Discussed and Chart Reviewed Final Anesthetic Review Family History of Problems with Anesthesia: No History of Problems with Anesthesia: No NPO: Yes ASA Class: II Final Preanesthetic Review: No Changes in Pt Med Stat, Meds/Allgs Chart Reviewed, Consent Obtained/Reviewed and Anes Risks/Benef Reviewed Patient Risk: Low Procedure Risk: Low Anesthetic Plan Anesthetic Plan: MAC: and Agree w/ Assess. and Plan Disposition: Standard PACU
--- NOTE | 2023-11-08 14:17 | MHC.SHP ---
Pre-Procedural Eval Section A - 24 Hr Update-Section A only Date of Service: 11/08/23 The patient is an INPATIENT: No Changes since office visit: No Cold of Flu in the past 2 weeks, No New Medical Problems, No Changes in Medication and No Patient answered all questions The patient has been examined within 24 hours of the surgical procedure. The History & Physical has been completed within 30 days and I have reviewed it.: Yes Section B - Complete if H&P > 30 days Chief Complaint: Age-related nuclear cataract, left eye Allergies: Allergies Allergy/AdvReac Type Severity Reaction Status Date / Time erythromycin base Allergy Unknown RASH Verified 11/08/23 13:16 [Erythromycin Base] CITRACE SPRAY Allergy Unknown WHEEZING Uncoded 08/11/23 09:40 Plan Diagnosis/Plan: Unchanged I have reviewed the history and physical and performed a pertinent physical examination on my patient. No changes have occurred unless specified. Time Spent With Patient Time: Total time managing care of this patient today ____ minutes.
--- NOTE | 2023-11-08 14:17 | HO.PNOPHT ---
Ophthalmology Procedure Procedure Date of Service: 11/08/23 Ophthalmology Viscoelastic: Healholly Youngert Dual Pack Pro Ophthalmology Lenses: TECLISA [id number] (23) Procedure Notes: PREOPERATIVE DIAGNOSIS: Decreased visual acuity left eye secondary to cataract POSTOPERATIVE DIAGNOSIS: Same PROCEDURE: Left cataract extraction with intraocular lens insertion SURGEON: Vahid Hawthorne M.D. ANESTHESIA: Topical/MAC ESTIMATED BLOOD LOSS: None COMPLICATIONS: None After obtaining informed consent, the patient was brought to the operation room suite and placed in the supine position. After adequate sedation per anesthesia, topical drops of Tetracaine were given to the left eye. The eye was then prepped and draped in the usual sterile fashion. The operating room microscope was then positioned over the operative eye and a lid speculum placed. A paracentesis was created. Viscoelastic was then instilled into the anterior chamber. A three plane incision was then created temporally, utilizing a 2.85 mm keratome. Capsulotomy forceps were then utilized to create a circular tear capsulotomy. Hydrodissection and hydrodelineation were carried out until adequate mobilization of the nucleus occurred. Phacoemulsification was then utilized to remove the dense central nucleus followed by removal of the cortical material utilizing the automated aspiration irrigation unit. Viscoat elastic was instilled into the posterior capsular bag followed by placement of a posterior chamber intraocular lens without difficulty. The residual Viscoat elastic was then removed utilizing the automated IA machine. The wound was check and found to be watertight. The patient tolerated the procedure well and the lid speculum was removed. Intracameral injection of Vigamox 0.1 mL followed by a subtenon injection of Kenalog-40 0.2 mL were administered. The patient will be seen in the a.m.
[2023-11-08 14:45] VITALS: BP 108/51; PULSE 52; RESP 16; TEMP 36.5; O2SAT 98
[2023-11-08 15:00] VITALS: BP 109/52; PULSE 52; RESP 16; O2SAT 97
== END 2023-11-08 15:04 | disposition home or self-care (01) ==
PROVIDERS: PCP Internal Medicine; Visit Provider Ophthalmology
PROC: (CPT 66985; principal; 2023-11-08 12:00)
DX: H25.12 Age-related nuclear cataract, left eye (principal); H54.7 Unspecified visual loss; H40.013 Open angle with borderline findings, low risk, bilateral; I27.20 Pulmonary hypertension, unspecified; R00.2 Palpitations; E78.00 Pure hypercholesterolemia, unspecified; R53.83 Other fatigue; Z79.82 Long term (current) use of aspirin; Z79.899 Other long term (current) drug therapy; Z88.1 Allergy status to other antibiotic agents
CPT/HCPCS: 66984; J2250; J3010; J3301; V2632

== ENCOUNTER 2024-02-01 06:47 | Outpatient (REF) | payer MEDICARE, SELFPAY ==
[2024-02-01 07:07] LABS: MANUAL DIFF FLAG NO
[2024-02-01 07:22] LABS: Basophils Percent Auto 0.5 % (0-2); Eosinophils Absolute Auto 0.1 X10*3/uL (0.0-0.4); Eosinophils Percent Auto 2.1 % (0-4); Hematocrit 42.2 % (37.0-47.0); Hemoglobin 14.4 g/dl (12.0-16.0); Imm Gran Abs Auto 0.01 X10*3/uL (0.00-0.03); Imm Gran Pct Auto 0.3 % (0.0-0.4); Lymphocytes Absolute Auto 1.5 X10*3/uL (1.2-4.9); Lymphocytes Percent Auto 40.7 % (20-40); Mean Corpuscular HGB Conc 34.1 g/dl (31.0-35.0); Mean Corpuscular Hemoglobin 31.6 pg (27.0-33.0); Mean Corpuscular Volume 92.5 fL (80.0-98.0); Mean Platelet Volume 10.6 fL (9.4-12.3); Monocytes Absolute Auto 0.4 X10*3/uL (0.1-1.2); Monocytes Percent Auto 11.2 % (2-11); Neutrophils Absolute Auto 1.7 x10*3/uL (2.0-8.3); Neutrophils Percent Auto 45.2 % (45-73); Platelet Count 182 X10*3/uL (160-400); Red Blood Count 4.56 X10*6/uL (4.20-5.50); Red Cell Distribution Width 13.4 % (11.0-16.0); White Blood Count 3.8 X10*3/uL (4.8-10.8)
[2024-02-01 07:40] LABS: Estimated Average Glucose 103 mg/dL; Hemoglobin A1c % 5.2 % (<6.0)
[2024-02-01 07:56] LABS: Alanine Aminotransferase 33 U/L (0-31); Alkaline Phosphatase 95 U/L (39-117); Anion Gap 11 (12-20); Aspartate Amino Transferase 31 U/L (5-31); Bilirubin Total 0.6 mg/dL (0.0-1.0); Blood Urea Nitrogen 12 mg/dL (9-16); Calcium 9.8 mg/dL (8.4-10.2); Carbon Dioxide 27 mmol/L (22-29); Chloride 105 mmol/L (96-108); Cholesterol 179 mg/dL (<200); Estimated Glomerular Filt Rate > 60; Glucose Fasting 96 mg/dL (60-99); HDL Cholesterol 85 mg/dL (>40); LDL Cholesterol Calculated 84 mg/dL (<100); Potassium 4.3 mmol/L (3.3-5.1); Sodium 139 mmol/L (135-145); Total Protein 6.7 g/dL (6.5-8.0); Triglycerides 53 mg/dL (<150)
[2024-02-01 08:05] LABS: Vitamin D 25-OH Total 49.8 ng/mL (>30)
== END 2024-02-01 06:48 | disposition home or self-care (01) ==
LOC: HO.LAB 06:47
PROVIDERS: PCP Internal Medicine; Visit Provider Internal Medicine
DX: E78.00 Pure hypercholesterolemia, unspecified (principal); M16.10 Unilateral primary osteoarthritis, unspecified hip; Z83.3 Family history of diabetes mellitus; Z13.1 Encounter for screening for diabetes mellitus
CPT/HCPCS: 36415; 80053; 80061; 82306; 83036; 85025

== ENCOUNTER 2024-07-18 09:50 | Outpatient (REF) | payer MEDICARE, SELFPAY ==
[2024-07-18 09:42] VITALS: PULSE 66; O2SAT 99
--- NOTE | 2024-07-18 09:53 | PFT_ITS ---
Indication: Dyspnea Spirometry [FEV1 to FVC 80%; FEV1 2.59 L; FVC 3.24 L. No significant response to bronchodilators noted.] Lung Volumes [Total lung capacity 78% predicted; respiratory volume 44% predicted] Diffusion Capacity [DLCO 96% predicted] Comparisons [None] Interpretation [No obstructive ventilatory defects. No significant response to bronchodilators noted. There is a mild restrictive ventilatory defect consistent mild restrictive lung disease. Diffusing capacity is within normal limits. Clinical correlation warranted.] MTDD
== END 2024-07-18 09:51 | disposition home or self-care (01) ==
LOC: HO.RESP 09:50
PROVIDERS: PCP Internal Medicine; Visit Provider Hospitalist
DX: R06.09 Other forms of dyspnea (principal)
CPT/HCPCS: 94010; 94640; 94727; 94729

== ENCOUNTER → 2024-07-18 09:53 | Outpatient (BNV) | payer MEDICARE, SELFPAY | PROVIDERS: PCP Internal Medicine; Visit Provider Hospitalist | DX: R06.09 Other forms of dyspnea (principal) | CPT/HCPCS: 94060; 94727; 94729 ==

== ENCOUNTER 2024-10-17 10:25 | Outpatient (AMB) | payer MEDICARE, SELFPAY ==
[2024-10-17 10:33] VITALS: BP 120/78; PULSE 66; O2SAT 100; BMI 22.4
--- NOTE | 2024-10-17 10:33 | MHC.OFFVIS ---
Vital Signs 10/17/24 10:33 Height 5 ft 7 in Weight 143 lb 4.807 oz BMI 22.4 BP 120/78 Blood Pressure Location Lt brachial Position Sitting Pulse 66 Pulse Source Pulse Oximeter Pulse Oximetry (%) 100 Oxygen Delivery Method Room Air Intake Visit Reasons: Shortness of breath Allergies erythromycin base [Erythromycin Base] Allergy (Unknown, Verified 10/17/24 10:37) RASH [place] SPRAY Allergy (Unknown, Uncoded 10/17/24 10:37) WHEEZING HPI Comments Details: The patient is a 74 year woman her is a healthy who apparently has been complaining of worsening dyspnea on exertion for the last few years. Is concerned that is progressively getting worse and she would like to avoid that if possible. The patient did have a workup including a PFT which was completely unremarkable except for slight decrease in the diffusing capacity. The patient also had a cardiac workup which included an echocardiogram demonstrating a dynamic left ventricle in addition to that underwent a stress test that was abnormal as she developed worsening shortness of breath and ST depressions in the EKG. The patient therefore underwent a CT of the coronary arteries which apparently was unremarkable. Therefore she was referred to Pulmonary. The patient denies any significant coughing. We did go for brief 6 minutes walk test actually going up a flight of stairs in the patient did become uncomfortable with dyspnea with dyspnea score of 7/10. Her oxygen was 98% and heart rate increased to about 115. Once the heart rate improved to her baseline of 70s her symptoms improved as well. Therefore, I do believe that is still a cardiovascular component and thereforewill request blood work including a D-dimer to assess for pulmonary emboli. In addition to that she will benefit from a cardiopulmonary exercise tolerance test to assess further the reasons for her dyspnea. 08/11/2023 the patient is here for a pulmonary follow-up visit. Overall the patient has been doing well. She has noticed that her dyspnea symptoms did get worse after Thanksgiving she had a more sodium intake and she was feeling bloated and swollen. In addition to that she feels like her breathing is worse when she leans forward against something restricting her lung capacity as well. We did review her pulmonary function studies demonstrating a mild diffusion impairment. She also underwent a cardiopulmonary exercise tolerance test to better address her underlying dyspnea symptoms. She did have a lower than normal aerobic capacity in addition to that her breathing reserve was significantly decreased and her oxygen pulse was plateaued. Therefore, appears to be a component of a respiratory limitation as well as a potential component of pulmonary vascular disease. Therefore, we talked about the importance of pulmonary rehabilitation to improve her airway capacity. I do not believe inhalers will be helpful at this time. The patient may have a cardiac component as well but is reassuring that her cardiac workup was good. My recommendation for the patient's start pulmonary rehabilitation and we can repeat her PFTs in 8-12 months to see if there is any evidence of any changes. 10/17/2024 the patient is here for a pulmonary follow-up visit. Overall she is doing well. The patient for the most part does not have any significant respiratory issues. Although there sometimes which she had significant difficulty breathing. Feels like air is not getting able to move. The patient states that primarily when it is hot and humid she has a hard time with her breathing and then when she goes into an air condition room she does feel better. This happened a few times when she went to the mall. Explained to her she likely has potential bronchospastic triggers that can affect her small airways. The patient did undergo pulmonary function studies again.. This time that she had a better response to Xopenex improving her small airways. She also had a little mild restriction that she did not have before. We did look at a CT scan of the coronary arteries that she had back in 2022 demonstrating fairly normal lung parenchyma least will be could see the windows. Will have her get a chest x-ray at this time. The patient also is agreeable to having a methacholine challenge as her symptoms appear to be more of a hypersensitivity type of reaction and therefore the use of inhalers may be helpful. However, she has had already adverse effects to multiple inhalers so therefore assessing with the methacholine challenge. [facility] Medical History (Updated 10/17/24 @ 11:04 by Jose Jacbos MD) Chronic restrictive lung disease Pulmonary hypertension Elevated cholesterol Hayfever Arthritis Fatigue Palpitations Tachycardia Surgical History Hx of tonsillitis Hx of cataract Family History Father CAD (coronary artery disease) Mother CAD (coronary artery disease) Social History Alcohol intake: current Alcohol intake frequency: holidays/special occasions only Patient Tobacco Use Status: Never used Tobacco Review of Systems Const Denies fever(s) Eyes Denies change in vision ENT Denies throat swelling Card Denies chest pain, Reports palpitations, Reports dyspnea and Reports dyspnea on exertion Resp Denies cough, Reports dyspnea and Reports dyspnea on exertion GI Denies abdominal pain Musc Reports no additional complaints Skin/Breast Denies rash Neuro Reports no additional complaints Endo Reports palpitations Aller/Immun Denies throat swelling Physical Exam Vital Signs: Last Vital Signs Pulse 66 10/17/24 10:33 BP 120/78 10/17/24 10:33 Pulse Ox 100 10/17/24 10:33 Oxygen Delivery Method Room Air 10/17/24 10:33 BMI result Body Mass Index 22.4 Const General: comfortable HEENT Head: Yes normocephalic Neck Neck: Yes supple Chest Chest palpation & inspection: normal inspection of the chest Resp Effort & Inspection: normal respiratory effort Auscultation: clear to auscultation bilaterally Cardio Rate: tachycardic Rhythm: regular rhythm Heart sounds: S1 normal heart sound present and S2 normal heart sound present GI Palpation (GI): Soft to palpation Skin General skin exam: no rashes or lesions noted Extrem General: Yes no clubbing, cyanosis or edema Assessment & Plan Assessment & Plan (1) Abnormal pulmonary function test: Comment: isolated diffusion impairment, mild Code(s): R94.2 - Abnormal results of pulmonary function studies Category: Medical (2) Exertional dyspnea: Comment: multifactorial Code(s): R06.09 - Other forms of dyspnea Category: Medical (3) Tachycardia: Code(s): R00.0 - Tachycardia, unspecified Category: Medical (4) Chronic restrictive lung disease: Code(s): J98.4 - Other disorders of lung Category: Medical Plan CPET demonstrates that the patient primarily has a low aerobic capacity primarily due to a respiratory limitation, but also appears to have a cardiovascular limititation. I suspect a component of pulmonary vascular disease. Clinically, the patient is feeling better at this time. REC: Methacholine challenge consider [place] as needed prior to exercise CXR F/U 6 months Orders: Orders RT pft w methacholine Today R06.09 - Other forms of dyspnea XR chest 2V Today J98.4 - Other disorders of lung Coding Level of Care Code Est Pt Level 4 (34945) Complex EM visit Add On G2211 Diagnoses Abnormal pulmonary function test R94.2 Exertional dyspnea R06.09 Tachycardia R00.0 Chronic restrictive lung disease J98.4 Time Spent (min) 18
== END 2024-10-17 11:10 | disposition home or self-care (01) ==
LOC: HO.HPS 10:26
PROVIDERS: PCP Internal Medicine; Visit Provider Hospitalist
DX: R94.2 Abnormal results of pulmonary function studies (principal); R06.09 Other forms of dyspnea; R00.0 Tachycardia, unspecified; J98.4 Other disorders of lung
CPT/HCPCS: 99214; G2211

== ENCOUNTER → 2024-10-17 10:25 | Outpatient (BNVA) | payer MEDICARE, SELFPAY | PROVIDERS: PCP Internal Medicine; Visit Provider Hospitalist | DX: R94.2 Abnormal results of pulmonary function studies (principal); R06.09 Other forms of dyspnea; R00.0 Tachycardia, unspecified; J98.4 Other disorders of lung | CPT/HCPCS: 99212 ==

== ENCOUNTER 2024-11-28 13:50 | Outpatient (AMB) | payer MEDICARE, SELFPAY ==
[2024-11-28 13:59] VITALS: BP 122/72; PULSE 63; RESP 18; TEMP 37.2; O2SAT 98; BMI 22.3
--- NOTE | 2024-11-28 13:59 | A.OFFPC_ITS ---
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 Accompanied by: Self / Same As Patient Allergies erythromycin base [Erythromycin Base] Allergy (Unknown, Verified 11/28/24 14:31) RASH [employer] SPRAY Allergy (Unknown, Uncoded 11/28/24 14:31) WHEEZING Medication List - Last Reconciled 11/28/24 by LAURIE Alicea amoxicillin-pot clavulanate 875-125 mg 1 tab PO BID aspirin (Adult Aspirin Regimen) 81 mg PO DAILY atorvastatin 10 mg PO BEDTIME multivitamin (Daily Multi-Vitamin tablet) 1 tab PO DAILY Tobacco use date assessed: 11/28/24 Fall risk assessment: No Falls in past year Last assessed Fall Risk: 11/28/24 Dental Screening Dental Screen Date: 11/28/24 Did you have a dental visit in the last 12 months?: Yes Did you have a dental problem in the last 6 months where you did not have access to dental care?: No Was dental information given to patient?: Patient has dentist HPI uri symptoms will wear mask HPI Details The patient is a 74-year-old female presenting with persistent symptoms of sinusitis despite ongoing Augmentin therapy initiated on Mother's Day. Her daughter, a Physician Headend Technician, had initially managed her symptoms due to significant sinus drainage, which persisted despite the use of Flonase and guaifenesin for relief of nasal congestion and pressure. Despite taking Augmentin for approximately two and a half days, she started experiencing chills with a fever reaching over 100?F. The sinus drainage experienced was described as thick and yellow, and while the symptoms appear unchanged, there is a slight improvement with quieter drainage. Further symptoms included episodes of coughing with rattling in the chest. She denies new shortness of breath and describes past chest pain as musculoskeletal, experienced intermittently for decades. The patient indicates the absence of wheezing, as noted in an assessment for potential asthma. Additionally, sore throat experienced was linked to sinus drainage, and earaches were absent. [facility] Medical History Chronic restrictive lung disease Pulmonary hypertension Elevated cholesterol Hayfever Arthritis Fatigue Palpitations Tachycardia Surgical History Hx of tonsillitis Hx of cataract Family History Father CAD (coronary artery disease) Mother CAD (coronary artery disease) Social History Housing: House Alcohol intake: current Alcohol intake frequency: holidays/special occasions only Patient Tobacco Use Status: Never used Tobacco e-Cigarette/Vaping Use: Never Used service: No Current occupational status: retired Cognitive needs: No Hearing needs: No Vision needs: Yes (Glasses) Questionnaire PHQ-9 Over the last 2 weeks, how often have you been bothered by any of the following problems? 1. Little interest or pleasure in doing things: not at all 2. Feeling down, depressed, or hopeless: not at all 3. Trouble falling or staying asleep, or sleeping too much: not at all 4. Feeling tired or having little energy: several days 5. Poor appetite or overeating: not at all 6. Feeling bad about yourself - or that you are a failure or have let yourself or your family down: not at all 7. Trouble concentrating on things, such as reading the newspaper or watching television: not at all 8. Moving or speaking so slowly that other people could have noticed. Or the opposite - being so fidgety or restless that you have been moving around a lot more than usual: not at all 9. Thoughts that you would be better off or of hurting yourself in some way: not at all Total score: 1 Depression Screening Interpretation: Negative Depression Screening Done: Yes 98584 - PHQ-9 Billing: Yes Source: Developed by Drs. Issa Holley, Samina Tate, Carlos Gaitan and colleagues, with an educational nhung from [employer]. Thrive Questionnaire Date Thrive assessed: 11/28/24 I am a: Patient What is your living situation today?: I have a steady place to live Within the past 12 months, did the food you bought not last and you didn't have the money to get more?: Never true Within the past 12 months, did you worry whether your food would run out before you got money to buy more?: Never true Do you have trouble paying for medicines?: No Do you have trouble getting transportation to medical appointments?: No Do you have trouble paying your heating and electricity bill?: No Do you have trouble taking care of your child, family member or friend?: No Do you have trouble with day-to-day activities such as bathing, preparing meals, shopping, managing finances, etc.?: No Are you currently unemployed and looking for a job?: No Are you interested in more education?: No Please select the resources that you would like help with: None Currently or been in a relationship where the following occur: No concerns repo rted THRIVE Score: 0 AUDIT C Alcohol Use Questionnaire (AUDIT-C) 1. How often do you have a drink containing alcohol?: Monthly or less 2. How many drinks containing alcohol do you have on a typical day when you are drinking?: 1 or 2 3. How often do you have six or more drinks on one occasion?: Never Total Score: 1 Score Reviewed/Action Taken: No ANA-7 AMB Questionnaire ANA-7 Date ANA - 7 assessed: 11/28/24 Feeling nervous, anxious, or on edge: 0 = Not at all Not being able to stop or control worryin = Not at all Worrying too much about different things: 0 = Not at all Trouble relaxin = Not at all Being so restless that it is hard to sit still: 0 = Not at all Becoming easily annoyed or irritable: 0 = Not at all Feeling afraid as if something awful might happen: 0 = Not at all Total ANA-7 score (0-4 normal; 5-9 mild; 10-14 moderate; 15-21 severe): 0 Source: Developed by Drs. Issa Holley, Samina Tate, Carlos Gaitan and colleagues, with an educational nhung from [employer]. ANA-7 Assessment Billing ANA-7 Assessment Tool: ANA-7 Assessment 73240 Review of Systems Const Details: Ear/Nose/Throat: Reports sinus pressure, drainage, and sore throat; denies ear pain. Denies chills, Denies fatigue, Denies fever(s), Denies headache(s) and Denies weakness Cardiac Denies chest pain, Denies claudication, Denies leg edema, Denies lightheadedness, Denies palpitations, Denies dyspnea, Denies dyspnea on exertion, Denies orthopnea and Denies other (Loss of consciousness) Respiratory: Reports coughing with chest rattling; denies shortness of breath. Musculoskeletal:Denies new muscle aches; history of chronic chest pain. General: Reports fever and chills. Physical exam (Primary Care) Vital Signs: Last Vital Signs Temp 98.9 F 11/28/24 13:59 Pulse 63 11/28/24 13:59 Resp 18 11/28/24 13:59 BP 122/72 11/28/24 13:59 Pulse Ox 98 11/28/24 13:59 Oxygen Delivery Method Room Air 11/28/24 13:59 BMI result Body Mass Index 22.3 Tobacco/Smoking Status: Tobacco use Status Tobacco use date assessed 11/28/24 11/28/24 14:01 Patient Tobacco Use Status Never used Tobacco 11/28/24 14:01 e-Cigarette/Vaping Use Never Used 11/28/24 14:01 PHQ-9: PHQ-9 Score PHQ-9: Total score 1 11/28/24 15:00 Depression Screening Interpretation: Negative Thrive Assessment: Date of Thrive Assessment Date Thrive assessed 11/28/24 11/28/24 14:01 Currently or been in a relationship where the following occur: No concerns reported Const General: healthy appearing, no acute distress, alert and awake Nutritional Appearance: well nourished [facility] Ears: TM's normal bilaterally General nose exam: Abnormal mucous membranes and turbinates present boggy and erythematous and Nasal discharge present purulent bilateral Throat: Yes posterior oropharynx normal Eyes Conjunctivae: conjunctivae normal Sclerae: sclerae normal Neck Neck: Yes no lymphadenopathy and Yes no JVD Thyroid: Thyroid normal Carotids: no bruits Resp Effort & Inspection: normal respiratory effort and not tachypneic Auscultation: no crackles, no rales, no rhonchi and no wheezes Cardio Rate: regular rate Rhythm: regular rhythm Heart sounds: no murmurs and normal S1 and S2 GI Palpation (GI): Soft to palpation, nontender, no hepatomegaly and no splenomegaly Auscultation: normal bowel sounds Coding Level of Care Code Est Pt Level 3 (14342) Diagnoses Acute rhinosinusitis J01.90 Additional Codes ANA-7 Assessment Billing - ANA-7 Assessment Tool: ANA-7 Assessment 32990 ([id number]) PHQ-9 - 77755 - PHQ-9 Billing: Yes ([id number]) Time Spent (min) 29 Assessment & Plan Assessment & Plan (1) Acute rhinosinusitis: Code(s): J01.90 - Acute sinusitis, unspecified Category: Medical Plan: Continue Augmentin b.i.d.. Start prednisone tapered. Continue Flonase as needed. If not feeling better by Wednesday consider atypical bacteria, contact office for further evaluation and possibly changing antibiotics. Medications: New prednisone see taper instruction take 4 tabs x2 days, then 3 tabs x 2 days, then 2 tabs x2 days, then 1 tab x2 days =20 tabs for 8 days 10 mg PO DIRECTED 20 tabs 0RF
== END 2024-11-28 14:49 | disposition home or self-care (01) ==
LOC: HO.HMCH 13:51
PROVIDERS: PCP Physician Assistant
DX: J01.90 Acute sinusitis, unspecified (principal)

== ENCOUNTER → 2024-11-28 13:50 | Outpatient (BNVA) | payer MEDICARE, SELFPAY | PROVIDERS: PCP Physician Assistant | DX: J01.90 Acute sinusitis, unspecified (principal) | CPT/HCPCS: 96127; 99212 ==

== ENCOUNTER 2024-12-29 07:54 | Outpatient (REF) | payer MEDICARE, SELFPAY ==
--- NOTE | 2024-12-29 07:59 | PFT_ITS ---
Methacholine bronchial challenge: Decrease in FEV1 of 20% or greater not observed with sequential methacholine challenge. Impression: Negative methacholine bronchial challenge. MTDD
[2024-12-29 09:28] VITALS: PULSE 60; O2SAT 98
== END 2024-12-29 07:55 | disposition home or self-care (01) ==
LOC: HO.RESP 07:54
PROVIDERS: PCP Physician Assistant; Visit Provider Hospitalist
DX: R06.09 Other forms of dyspnea (principal)
CPT/HCPCS: 94010; 94070; 94640

== ENCOUNTER 2025-01-25 10:45 | Outpatient (AMB) | payer MEDICARE, SELFPAY ==
--- NOTE | 2025-01-25 10:47 | A.OFFPC_ITS ---
Vital Signs 01/25/25 10:49 Height 5 ft 7 in Weight 142 lb 4 oz BMI 22.3 BP 118/60 Blood Pressure Location Lt brachial Position Sitting Pulse Source Pulse Oximeter Oxygen Delivery Method Room Air Intake Visit Reasons: possible physical - see comment Horn Player Required: No Accompanied by: Self / Same As Patient Allergies erythromycin base (Erythromycin Base) Allergy (Unknown, Verified 01/25/25 11:18) RASH [place] SPRAY Allergy (Unknown, Uncoded 01/25/25 11:18) WHEEZING Medication List - Last Reconciled 01/25/25 by Eric Crawley PA-C amoxicillin-pot clavulanate 875-125 mg 1 tab PO BID aspirin (Adult Aspirin Regimen) 81 mg PO DAILY atorvastatin 10 mg PO BEDTIME multivitamin (Daily Multi-Vitamin tablet) 1 tab PO DAILY nystatin 10 mL PO BID 7 days prednisone 10 mg PO DIRECTED Tobacco use date assessed: 01/25/25 Fall risk assessment: No Falls in past year Last assessed Fall Risk: 01/25/25 Dental Screening Dental Screen Date: 01/25/25 Did you have a dental visit in the last 12 months?: Yes Did you have a dental problem in the last 6 months where you did not have access to dental care?: No Was dental information given to patient?: Patient has dentist HPI possible physical - see comment HPI Details The patient is a 74-year-old female presenting for a new patient visit. Previous PCP was Dr. Miller The patient reports experiencing exertional dyspnea, particularly in humid weather, which affects her ability to exercise. She has been evaluated by Dr. Carmen chapman, who conducted pulmonary function tests and a methacholine challenge test, both of which were negative for asthma. The dyspnea is not present in air- conditioned environments, and she has learned to manage it by staying in such environments. The patient has a history of hyperlipidemia, for which she is taking atorvastatin. She reports having a refill available for her medication, which should last for another five months. She has received her Pneumovax vaccinations, with the last one in 2013, which caused a significant reaction affecting her liver function temporarily. She has also completed her COVID-19 and shingles vaccinations. The patient has undergone colonoscopies in the past and is due for a Cologuard test, which she prefers over the traditional procedure. [facility] Medical History Chronic restrictive lung disease Pulmonary hypertension Elevated cholesterol Hayfever Arthritis Fatigue Palpitations Tachycardia Surgical History Hx of tonsillitis Hx of cataract Family History Father CAD (coronary artery disease) Mother CAD (coronary artery disease) Social History Housing: House Alcohol intake: current Alcohol intake frequency: holidays/special occasions only Patient Tobacco Use Status: Never used Tobacco e-Cigarette/Vaping Use: Never Used service: No Current occupational status: retired Cognitive needs: No Hearing needs: No Vision needs: Yes (Glasses) Questionnaire Thrive Questionnaire Date Thrive assessed: 01/25/25 I am a: Patient What is your living situation today?: I have a steady place to live Within the past 12 months, did the food you bought not last and you didn't have the money to get more?: Never true Within the past 12 months, did you worry whether your food would run out before you got money to buy more?: Never true Do you have trouble paying for medicines?: No Do you have trouble getting transportation to medical appointments?: No Do you have trouble paying your heating and electricity bill?: No Do you have trouble taking care of your child, family member or friend?: No Do you have trouble with day-to-day activities such as bathing, preparing meals, shopping, managing finances, etc.?: No Are you currently unemployed and looking for a job?: No Are you interested in more education?: No Please select the resources that you would like help with: None Currently or been in a relationship where the following occur: No concerns reported THRIVE Score: 0 ANA-7 AMB Questionnaire ANA-7 Date ANA - 7 assessed: 01/25/25 Source: Developed by Drs. Issa Holley, Samina Tate, Carlos Gaitan and colleagues, with an educational nhung from [employer] (?). Review of Systems Const Denies headache(s) Eyes Denies loss of vision ENT Denies vertigo, Denies dizziness, Denies headache(s) and Denies sore throat Card Denies chest pain, Denies leg edema and Denies lightheadedness Resp Denies cough, Denies hemoptysis and Denies wheezing GI Denies abdominal pain, Denies melena, Denies constipation, Denies diarrhea and Denies vomiting Denies urinary frequency, Denies dysuria and Denies urinary urgency Musc Denies arthralgias, Denies joint swelling, Denies numbness and Denies tingling Neuro Denies Abnormal speech present, Denies behavioral changes, Denies vertigo, Den ies dizziness, Denies headache(s), Denies loss of vision, Denies memory loss, Denies numbness and Denies tingling Psych Denies anxiety, Denies behavioral changes, Denies depression, Denies memory loss and Denies panic attacks Paul/Lymph Denies easy bleeding and Denies easy bruising Aller/Immun Denies wheezing Physical exam (Primary Care) Vital Signs: Last Vital Signs BP 118/60 01/25/25 10:49 Oxygen Delivery Method Room Air 01/25/25 10:49 BMI result Body Mass Index 22.3 Tobacco/Smoking Status: Tobacco use Status Tobacco use date assessed 01/25/25 01/25/25 10:52 Patient Tobacco Use Status Never used Tobacco 01/25/25 10:52 e-Cigarette/Vaping Use Never Used 01/25/25 10:52 Thrive Assessment: Date of Thrive Assessment Date Thrive assessed 01/25/25 01/25/25 10:52 Currently or been in a relationship where the following occur: No concerns reported Const General: healthy appearing, no acute distress, alert and awake Nutritional Appearance: well nourished Orientation/consciousness: oriented to person, oriented to place and oriented to time [facility] Ears: TM's normal bilaterally General nose exam: Normal nasal mucous membranes and turbinates present Eyes Conjunctivae: conjunctivae normal Sclerae: sclerae normal Pupils: Equal, round and reactive pupils present Neck Neck: Yes no lymphadenopathy and Yes no JVD Thyroid: Thyroid normal Carotids: no bruits Resp Effort & Inspection: normal respiratory effort and not tachypneic Auscultation: no crackles, no rales, no rhonchi and no wheezes Cardio Rate: regular rate Rhythm: regular rhythm Heart sounds: no murmurs and normal S1 and S2 GI Palpation (GI): Soft to palpation, nontender, no hepatomegaly and no splenomegaly Auscultation: normal bowel sounds Skin General skin exam: no rashes or lesions noted and dry skin Neuro General: oriented to person, oriented to place and oriented to time Cranial nerves: Yes Equal, round and reactive pupils present Speech: No Abnormal speech present Gait exam (Neuro): Normal gait present Motor exam (neuro): no tremor noted Extrem Right upper extremity: full ROM Left upper extremity: full ROM Right lower extremity: full ROM; no edema Left lower extremity: full ROM; no edema Psych Mental Status: mental status grossly normal Speech and movement: Normal speech and movement present Affect: normal affect Attitude: cooperative Thought process: Normal thought process present Coding Level of Care Code New Pt Level 4 (17981) Diagnoses Chronic restrictive lung disease J98.4 Mixed hyperlipidemia E78.2 Hyperlipidemia type: mixed hyperlipidemia Assessment & Plan Assessment & Plan (1) Chronic restrictive lung disease: Code(s): J98.4 - Other disorders of lung Category: Medical Plan: The patient experiences exertional dyspnea, particularly in humid weather, which affects her exercise routine. Pulmonary function tests and a methacholine challenge test were negative for asthma. The patient manages symptoms by staying in air-conditioned environments. (2) Hyperlipidemia: Code(s): E78.5 - Hyperlipidemia, unspecified Category: Medical Qualifiers: Hyperlipidemia type: mixed hyperlipidemia Qualified Code(s): E78.2 - Mixed hyperlipidemia Plan: Patient continues on atorvastatin 10 mg with good effect. Most recent lipid panel showing excellent control of her total cholesterol and LDL. Goal LDL is to remain below 130 Orders: Orders Complete Blood Count no Diff Today E78.5 - Hyperlipidemia, unspecified Lipid Panel Today E78.5 - Hyperlipidemia, unspecified Comprehensive [place]. Panel Fast Today E78.5 - Hyperlipidemia, unspecified Referrals Cologuard Test E78.5 - Hyperlipidemia, unspecified, Z12.11 - Encounter for screening for malignant neoplasm of colon Medications: Discontinued prednisone see taper instruction take 4 tabs x2 days, then 3 tabs x 2 days, then 2 tabs x2 days, then 1 tab x2 days =20 tabs for 8 days Discontinued Reason: Doctor's Order 10 mg PO DIRECTED 20 tabs 0RF
[2025-01-25 10:49] VITALS: BP 118/60; BMI 22.3
--- OUTSIDE RECORDS SUMMARY | 2025-01-25 11:26 | XMS_ITS | Patient Health Record ---
Author Organization [facility] Address [address] [place] [address] Care Team Providers Care Steeple Jack Name Role Phone Angela MARS, Jass Primary Care Provider Unavaila Troy Chavira Jr Unavailable Landen CLINE, Елена Unavailable Unavailable Allergies Allergen (clinical drug ingredient) Drug/Non Drug Allergy documented on EMR Reaction Allergy Type Onset Date Status erythromycin Erythromycin Unknown Drug Allergy A ctive citrace (uncoded) Unknown Allergy Ac tive Reason For Referral No Information Medications Medication SIG (Take, Route, Frequency, Duration) Notes Start Date End Date Status Glucosamine Active Multivitamin Active Aspir-81 PRN Active Naproxen PRN Active tylenol PRN Active Problems Problem Type SNOMED Code ICD Code Onset Dates Problem Status W/U Status Risk Notes Problem [id number] Colon cancer screening (Z12.11) Active confirmed Problem [id number] Family history of colon cancer requiring screening colonoscopy (Z80.0) Active confirmed Problem 41658491 Other specified pre-operative examination (Z01.818) Active confirmed Plan Of Treatment Future Test Test Name Order Date COLONOSCOPY 03/12/2016 Insurance Providers Payer Name Payer Address Payer Phone Subscriber Number Group Number Insured Name Patient Relationship to Insured Coverage Start Date Coverage End Date [facility] [address] [place] [phone] [id number] MALIK LEONARD Self - patient is the insured MEDICARE OF [facility] [address] [place] [address] [place] [id number] MALIK LEONARD Self - patient is the insured Medical (General) History Medical History History ICD Code Denies CO,DM,CVA,Lung disease,renal dise ase Surgical History Surgery Date(Month/Year) section T & A dental
== END 2025-01-25 11:48 | disposition home or self-care (01) ==
LOC: HO.HMCH 10:46
PROVIDERS: PCP Internal Medicine; Visit Provider Physician Assistant
DX: J98.4 Other disorders of lung (principal); E78.2 Mixed hyperlipidemia

== ENCOUNTER → 2025-01-25 10:45 | Outpatient (BNVA) | payer MEDICARE, SELFPAY | PROVIDERS: PCP Internal Medicine; Visit Provider Physician Assistant | DX: E78.2 Mixed hyperlipidemia (principal); J98.4 Other disorders of lung | CPT/HCPCS: 96127; 99202 ==

== ENCOUNTER 2025-01-29 06:11 | Outpatient (REF) | payer MEDICARE, SELFPAY ==
[2025-01-29 07:23] LABS: Hematocrit 41.9 % (37.0-47.0); Hemoglobin 14.3 g/dl (12.0-16.0); Mean Corpuscular HGB Conc 34.1 g/dl (31.0-35.0); Mean Corpuscular Hemoglobin 31.2 pg (27.0-33.0); Mean Corpuscular Volume 91.5 fL (80.0-98.0); NRBC Abs Auto 0.000 X10*3/uL (0.0-0.012); NRBC Pct Auto 0.0 /100WBC (0.0-0.2); Platelet Count 198 X10*3/uL (160-400); Red Blood Count 4.58 X10*6/uL (4.20-5.50); White Blood Count 3.4 X10*3/uL (4.8-10.8)
[2025-01-29 08:03] LABS: Alanine Aminotransferase 44 U/L (0-31); Albumin Level 4.1 g/dL (3.5-5.0); Alkaline Phosphatase 87 U/L (39-117); Anion Gap 9 (12-20); Aspartate Amino Transferase 38 U/L (5-31); Blood Urea Nitrogen 14 mg/dL (9-16); Calcium 9.6 mg/dL (8.4-10.2); Carbon Dioxide 27 mmol/L (22-29); Chloride 107 mmol/L (96-108); Cholesterol 183 mg/dL (<200); Estimated Glomerular Filt Rate > 60; HDL Cholesterol 84 mg/dL (>40); Potassium 4.3 mmol/L (3.3-5.1); Sodium 139 mmol/L (135-145); Total Protein 6.8 g/dL (6.5-8.0); Triglycerides 60 mg/dL (<150)
== END 2025-01-29 06:12 | disposition home or self-care (01) ==
LOC: HO.LAB 06:11
PROVIDERS: PCP Physician Assistant; Visit Provider Physician Assistant
DX: E78.5 Hyperlipidemia, unspecified (principal)
CPT/HCPCS: 36415; 80053; 80061; 85027

== ENCOUNTER 2025-02-19 10:04 | Outpatient (AMB) | payer MEDICARE, SELFPAY ==
[2025-02-19 10:07] VITALS: BP 122/67; PULSE 65; O2SAT 99; BMI 21.9
--- NOTE | 2025-02-19 10:07 | A.OFFVIS_ITS ---
Vital Signs 02/19/25 10:07 Height 5 ft 7 in Weight 140 lb BMI 21.9 BP 122/67 Blood Pressure Location Lt brachial Position Sitting Pulse 65 Pulse Source Pulse Oximeter Pulse Oximetry (%) 99 Oxygen Delivery Method Room Air Intake Visit Reasons: Shortness of breath Allergies erythromycin base (Erythromycin Base) Allergy (Unknown, Verified 02/19/25 10:13) RASH [place] Allergy (Unknown, Uncoded 01/25/25 11:18) WHEEZING HPI Comments Details: The patient is a 74 year woman her is a healthy who apparently has been c omplaining of worsening dyspnea on exertion for the last few years. Is concerned that is progressively getting worse and she would like to avoid that if possible. The patient did have a workup including a PFT which was completely unremarkable except for slight decrease in the diffusing capacity. The patient also had a cardiac workup which included an echocardiogram demonstrating a dynamic left ventricle in addition to that underwent a stress test that was abnormal as she developed worsening shortness of breath and ST depressions in the EKG. The patient therefore underwent a CT of the coronary arteries which apparently was unremarkable. Therefore she was referred to Pulmonary. The patient denies any significant coughing. We did go for brief 6 minutes walk test actually going up a flight of stairs in the patient did become uncomfortable with dyspnea with dyspnea score of 7/10. Her oxygen was 98% and heart rate increased to about 115. Once the heart rate improved to her baseline of 70s her symptoms improved as well. Therefore, I do believe that is still a cardiovascular component and thereforewill request blood work including a D- dimer to assess for pulmonary emboli. In addition to that she will benefit from a cardiopulmonary exercise tolerance test to assess further the reasons for her dyspnea. 08/11/2023 the patient is here for a pulmonary follow-up visit. Overall the patient has been doing well. She has noticed that her dyspnea symptoms did get worse after Thanksgiving she had a more sodium intake and she was feeling bloated and swollen. In addition to that she feels like her breathing is worse when she leans forward against something restricting her lung capacity as well. We did review her pulmonary function studies demonstrating a mild diffusion impairment. She also underwent a cardiopulmonary exercise tolerance test to better address her underlying dyspnea symptoms. She did have a lower than normal aerobic capacity in addition to that her breathing reserve was significantly decreased and her oxygen pulse was plateaued. Therefore, appears to be a component of a respiratory limitation as well as a potential component of pulmonary vascular disease. Therefore, we talked about the importance of pulmonary rehabilitation to improve her airway capacity. I do not believe inhalers will be helpful at this time. The patient may have a cardiac component as well but is reassuring that her cardiac workup was good. My recommendation for the patient's start pulmonary rehabilitation and we can repeat her PFTs in 8-12 months to see if there is any evidence of any changes. 10/17/2024 the patient is here for a pulmonary follow-up visit. Overall she is doing well. The patient for the most part does not have any significant respiratory issues. Although there sometimes which she had significant difficulty breathing. Feels like air is not getting able to move. The patient states that primarily when it is hot and humid she has a hard time with her breathing and then when she goes into an air condition room she does feel better. This happened a few times when she went to the mall. Explained to her she likely has potential bronchospastic triggers that can affect her small airways. The patient did undergo pulmonary function studies again.. This time that she had a better response to Xopenex improving her small airways. She also had a little mild restriction that she did not have before. We did look at a CT scan of the coronary arteries that she had back in 2022 demonstrating fairly normal lung parenchyma least will be could see the windows. Will have her get a chest x-ray at this time. The patient also is agreeable to having a methacholine challenge as her symptoms appear to be more of a hypersensitivity type of reaction and therefore the use of inhalers may be helpful. However, she has had already adverse effects to multiple inhalers so therefore assessing with the methacholine challenge. 02/19/2025 the patient is here for pulmonary follow-up visit. Overall she is feeling better for the most part. When she is resting and she is walking during good weather she does well. Although when she is exposed to significant humidity going outside and other environmental elements she started developing increasing chest tightness. She does not use the albuterol because it caused tremulousness. She did have a methacholine challenge that she tolerate it. Apparently it was a negative study although I need to review the data to make sure that does the case. In the meantime she was given levo albuterol during the study and she did feel better afterwards. Therefore I will send a prescription over so she can use prior to being exposed to significant humidity or before exercise she can also use it or as needed. Further recommendation based on the forthcoming data. For now she will follow-up in the springtime if she has any issues prior to that she will call for an earlier evaluation. [facility] Medical History Chronic restrictive lung disease Pulmonary hypertension Elevated cholesterol Hayfever Arthritis Fatigue Palpitations Tachycardia Surgical History Hx of tonsillitis Hx of cataract Family History Father CAD (coronary artery disease) Mother CAD (coronary artery disease) Social History Housing: House Alcohol intake: current Alcohol intake frequency: holidays/special occasions only Patient Tobacco Use Status: Never used Tobacco e-Cigarette/Vaping Use: Never Used service: No Current occupational status: retired Cognitive needs: No Hearing needs: No Vision needs: Yes (Glasses) Review of Systems Const Denies fever(s) Eyes Denies change in vision ENT Denies throat swelling Card Denies chest pain, Reports dyspnea and Reports dyspnea on exertion Resp Denies cough, Reports dyspnea and Reports dyspnea on exertion GI Denies abdominal pain Musc Reports no additional complaints Skin/Breast Denies rash Neuro Reports no additional complaints Aller/Immun Denies throat swelling Physical Exam Vital Signs: Last Vital Signs Pulse 65 02/19/25 10:07 BP 122/67 02/19/25 10:07 Pulse Ox 99 02/19/25 10:07 Oxygen Delivery Method Room Air 02/19/25 10:07 BMI result Body Mass Index 21.9 Const General: comfortable HEENT Head: Yes normocephalic Neck Neck: Yes supple Chest Chest palpation & inspection: normal inspection of the chest Resp Effort & Inspection: normal respiratory effort Auscultation: clear to auscultation bilaterally Cardio Rate: tachycardic Rhythm: regular rhythm Heart sounds: S1 normal heart sound present and S2 normal heart sound present GI Palpation (GI): Soft to palpation Skin General skin exam: no rashes or lesions noted Extrem General: Yes no clubbing, cyanosis or edema Assessment & Plan Assessment & Plan (1) Abnormal pulmonary function test: Comment: isolated diffusion impairment, mild Code(s): R94.2 - Abnormal results of pulmonary function studies Category: Medical (2) Exertional dyspnea: Comment: multifactorial Code(s): R06.09 - Other forms of dyspnea Category: Medical (3) Tachycardia: Code(s): R00.0 - Tachycardia, unspecified Category: Medical (4) Chronic restrictive lung disease: Code(s): J98.4 - Other disorders of lung Category: Medical Plan CPET demonstrates that the patient primarily has a low aerobic capacity primarily due to a respiratory limitation, but also appears to have a cardiovascular limititation. I suspect a component of pulmonary vascular disease. Clinically, the patient is feeling better at this time. REC: Methacholine challenge,need to review raw data consider [place] as needed prior to exercise, xopenex F/U 6 months Medications: New levalbuterol tartrate 45 mcg/actuation (Xopenex HFA) 2 puffs inhalation Q6H PRN 15 grams 11RF shortness of breath or wheezing 30 days J45.909 - Unspecified asthma, uncomplicated Coding Level of Care Code Est Pt Level 4 (80766) Complex EM visit Add On G2211 Diagnoses Abnormal pulmonary function test R94.2 Exertional dyspnea R06.09 Tachycardia R00.0 Chronic restrictive lung disease J98.4 Time Spent (min) 16
--- OUTSIDE RECORDS SUMMARY | 2025-02-19 10:43 | XMS_ITS | Patient Health Record ---
Author Organization [facility] Address [address] [place] [address] Care Team Providers Care Senior Software Engineer Name Role Phone Angela (RETIRED) Jass MARS Primary Care Provide r Unavailable Troy Skelton Jr Unavailable Landen CLINE, Елена Unavailable Unavailable [...] Problem Status W/U Status Risk Notes Problem [id number] Colon cancer screening (Z12.11) Active confirmed Problem 843544407 Family history of colon cancer requiring screening colonoscopy (Z80.0) Active confirmed Problem [id number] Other specified pre-operative examination (Z01.818) Active confirmed Plan Of Treatment Future Test Test Name Order Date COLONOSCOPY 03/12/2016 Insurance Providers Payer Name Payer Address Payer Phone Subscriber Number Group Number Insured Name Patient Relationship to Insured Coverage Start Date Coverage End Date [facility] [address] [place] [phone] [id number] MALIK LEONARD Self - patient is the insured MEDICARE OF [place] [address] [place] [address] [id number] MALIK LEONARD Self - patient is the insured Medical (General) History Medical History History ICD Code Denies MO,DM,CVA,Lung disease,renal dise ase Surgical History Surgery Date(Month/Year) section T & A dental
== END 2025-02-19 10:34 | disposition home or self-care (01) ==
LOC: HO.HPS 10:05
PROVIDERS: PCP Internal Medicine; Visit Provider Hospitalist
DX: R94.2 Abnormal results of pulmonary function studies (principal); R06.09 Other forms of dyspnea; R00.0 Tachycardia, unspecified; J98.4 Other disorders of lung
CPT/HCPCS: 99214; G2211

== ENCOUNTER → 2025-02-19 10:04 | Outpatient (BNVA) | payer MEDICARE, SELFPAY | PROVIDERS: PCP Internal Medicine; Visit Provider Hospitalist | DX: R06.02 Shortness of breath (principal); R06.09 Other forms of dyspnea; J98.4 Other disorders of lung; R94.2 Abnormal results of pulmonary function studies; R00.0 Tachycardia, unspecified | CPT/HCPCS: 99212 ==

== ENCOUNTER 2025-05-03 08:20 | Outpatient (REF) | payer MEDICARE, SELFPAY ==
--- NOTE | ~2025-05-03 | US_ITS ---
CLINICAL HISTORY: R74.8 - Abnormal levels of other serum enzymes --- Additional Notes or Special Instructions: Ultrasound evaluate for fatty liver US abdomen complete Comparison: None provided Findings: The visualized pancreas is normal. The aorta and inferior vena cava are normal caliber. The liver is normal in size and echotexture. There is no intrahepatic bile duct dilatation. The common duct is 4.0 mm in diameter. The gallbladder is normal. There is no sonographic Bacon sign. The main portal vein is antegrade. The right kidney is 12.2 cm in length. The left kidney is 11.9 cm in length. The spleen is normal. No ascites. IMPRESSION: 1. Normal complete abdominal ultrasound. This document has been electronically signed by: Chinedu Macias MD on 05/04/2025 09:51:28
--- OUTSIDE RECORDS SUMMARY | 2025-05-03 08:31 | XMS_ITS | Patient Health Record ---
Author Organization [facility] Address [address] [place] [address] Care Team Providers Care Manager Monitoring Name Role Phone Eric Crawley Primary Care Provider Unavailab Troy Hitchcock Jr Unavailable [phone] Landen CLINE, Елена Unavailable Unavailable Allergies Allergen [...] Problem Status W/U Status Risk Notes Problem Colon cancer screening (552998768) Colon cancer screening (Z12.11) Active confirmed Problem Family history of malignant neoplasm of gastrointestinal tract (215931734) Family history of colon cancer requiring screening colonoscopy (Z80.0) Active confirmed Problem Pre-surgery evaluation (461669559) Other specified pre-operative examination (Z01.818) Active confirmed Plan Of Treatment Future Test Test Name Order Date COLONOSCOPY 03/12/2016 Next Appt Details Provider Name:Troy sykes Jr, 07/04/2025 10:00:00 AM, [address], [address], [place], [address], Insurance Providers Payer Name Payer Address Payer Phone Subscriber Number Group Number Insured Name Patient Relationship to Insured Coverage Start Date Coverage End Date [facility] [address] [place] [phone] [id number] MALIK LEONARD Self - patient is the insured MEDICARE OF [place] [address] [place] [address] [phone] [id number] MALIK LEONARD Self - patient is the insured Medical (General) History Medical History History ICD Code Denies NE,DM,CVA,Lung disease,renal dise ase Surgical History Surgery Date(Month/Year) section T & A dental
== END 2025-05-03 08:21 | disposition home or self-care (01) ==
LOC: HO.US 08:20
PROVIDERS: PCP Physician Assistant; Visit Provider Physician Assistant
DX: R74.8 Abnormal levels of other serum enzymes (principal)
CPT/HCPCS: 76700

== ENCOUNTER → 2025-05-03 08:24 | Outpatient (BNV) | payer MEDICARE, SELFPAY | PROVIDERS: PCP Physician Assistant; Visit Provider Specialist | DX: R74.8 Abnormal levels of other serum enzymes (principal) | CPT/HCPCS: 76700 ==